=== PATIENT | male | born 1995 | race Caucasian/White ===

== ENCOUNTER 2023-10-03 08:52 | Outpatient (OUT) | payer OTHER, SELFPAY ==
--- NOTE | 2023-10-03 09:09 | XR_ITS ---
[address] [address] Patient Name: ARTURO GARLAND MRN: [id number] date: 1995 Sex: M Assigned Patient Location: [place] Current Patient Location: [place] Accession/Order Number: [id number] Exam Date: 10/03/2023 10:13 Report Date: 10/03/2023 11:03 At the request of: JOSE LUIS BURKS Procedure: XR IVP w KUB EXAMINATION: XR IVP w KUB HISTORY: Left Ureteral Stone N20.1 COMPARISON: No relevant comparison available. TECHNIQUE: After obtaining patient consent a stock layer image was obtained followed by injection of 100cc of Omnipaque 300 IV contrast. Immediate nephrographic images were obtained. Corticomedullary and urographic phase images were obtained at 5, 10, 15 and 20 minutes. 15 minute oblique images were also obtained. FINDINGS: KIDNEY/URETER - RIGHT: No visible calcifications. KIDNEY/URETER - LEFT: No visible calcifications. PELVIS: No visible ureteral calcifications. Any visible calcifications favor phleboliths. NEPHROGRAPHIC PHASE: Normal, symmetric size, contour, and orientation. Normal and symmetric time of contrast uptake. CORTICOMEDULLARY: No mass or abnormal appearing medulla, pyramids, or collecting system. UROGRAPHIC PHASE: Normal caliber, course, and number of ureters. BLADDER: Normal size and contour. BOWEL: No abnormal dilation or deviation. BONES: No acute abnormality. OTHER: Negative. No abnormal gaseous collections. XR/XR IVP w KUB IMPRESSION: Normal examination. Electronically authenticated by: GISSEL SPARROW Date: 10/03/2023 11:03
[2023-10-03 09:31] LABS: Estimated GFR (African America >60 (>=60); Estimated GFR (Non-African Ame >60 (>=60)
== END 2023-10-03 08:53 | disposition home or self-care (01) ==
PROVIDERS: PCP Family Medicine; Visit Provider Nurse Practitioner Family
DX: N20.1 Calculus of ureter (principal)
CPT/HCPCS: 36415; 74400; 82565; Q9967

== ENCOUNTER 2024-05-05 12:08 | Emergency (ER) | payer OTHER, SELFPAY ==
[2024-05-05 12:55] VITALS: BP 146/100; PULSE 91; TEMP 36.9; O2SAT 96; BMI 34.3
--- OUTSIDE RECORDS SUMMARY | 2024-05-05 12:58 | XMS_ITS | CCD ---
Author Organization [facility] Inform ion Partnership [facility] Care Team Providers Care Control Room Tender Name Role Phone Mark Vasquez DO Primary Care Provider [phone] MARK VASQUEZ Primary Care Unavailable MARK VASQUEZ Referring Unavailable MARK VASQUEZ Referring Unavailable MARK VASQUEZ Primary Care Unavailable MARK VASQUEZ Attending Unavailable MARK VASQUEZ Referring Unavailable MERRY ZAMORA Attending Unavailable DO Mark Vasquez Primary Care Provider DO Nathaniel Lackey Emergency Provider MARK VASQUEZ Primary Care Physician Nathaniel Lackey Admitting Unavailable Nathaniel Lackey Attending Unavailable Mark Vasquez Primary Care Unavailable Nathaniel Lackey Attending Unavailable Mark Vasquez Primary Care Unavailable Nathaniel Lackey Admitting Unavailable Delfino Chau Admitting Unavailable Delfino Chau Attending Unavailable Mark Vasquez Primary Care Unavailable Aleksandra Diaz Attending Unavailable Allergies Allergy Classification Reported Allergen(s) Allergy Type Date of Onset Reaction(s) Facility (1 source) No Known Medication Allergies; Translations: [No Known Medication Allergies] Propensity to adverse reactions (disorder) [facility] Repository Medications Current Medications Medication Drug Class(es) Dates Sig (Normalized) Sig (Original) Advair HFA 115 mcg-21 mcg/inh inhalation aerosol with adapter (1 source) Start: 09-23-2023 take 2 puff(s) by inhalation once daily Advair HFA 115 mcg-21 mcg/inh inhalation aerosol with adapter 2 puff(s), Inhalation, Daily, Refill(s) 6 Start Date: 09/23/23 Status: Ordered Albuterol (4 sources) beta2-Adrenergic Agonist Start: 09-23-2023 Albuterol (Eqv-ProAir HFA) 2 puff(s), Inhalation, Refill(s) 0 Start Date: 09/23/23 Status: Ordered Start: 04-01-2020 Albuterol Sulf ate Active 2 PUFF INHALATION every 6 to 8 hours April 01, 2020 1:00am take 2 puff(s) by in halation every six hours as needed for wheezing albuterol sulfate HFA (VENTOLIN HFA) 108 (90 Base) MCG/ACT inhaler Inhale 2 puffs into the lungs every 6 hours as needed for Wheezing 0 Active cephalexin 500 mg oral capsule (2 sources) Cephalosporin Antibacterial Start: 09-05-2023 take 500 mg by mouth twice daily Cephalexin Active 500 MG PO Twice daily 21 02September 05, 2023 12:00am FLUoxetine 40 mg oral capsule (1 source) Serotonin Reuptake Inhibitor take 1 capsule by mouth once daily FLUoxetine (PROZAC) 40 MG capsule Take 40 mg by mouth daily 0 Active 120 actuat fluticasone propionate 0.11 mg/actuat metered dose inhaler (1 source) Corticosteroid take 1 puff(s) by inhalation twice daily fluticasone (FLOVENT HFA) 110 MCG/ACT inhaler Inhale 1 puff into the lungs 2 times daily 0 Active ibuprofen 800 mg oral tablet (3 sources) Nonsteroidal Anti-inflammatory Drug Start: 09-23-2023 ibuprofen 800 mg Tab 800 mg = 1 tab(s), Oral, Refills(s) 0 Start Date: 09/23/23 Status: Ordered Start: 09-05-2023 take 800 mg by mouth three times daily Ibuprofen Active 800 MG PO Three times daily September 05, 2023 12:00am Loratadine / Pseudoephedrine (1 source) alpha-Adrenergic Agonist Loratadine-Pseudoeph edrine (CLARITIN-D 24 HOUR PO) Take by mouth 0 Active omeprazole 20 mg delayed release oral capsule (1 source) Proton Pump Inhibitor Star t: 09-03 take 1 capsule by mouth once daily omeprazole 20 mg Cap-DR 20 mg = 1 cap(s), Oral, Daily, Refills(s) 0 Start Date: 09/23/23 Status: Ordered ondansetron 4 mg disintegrating oral tablet (2 sources) Serotonin-3 Receptor Antagonist Star t: 07-22 take 4 mg by mouth every eight hours Ondansetron Active 4 MG PO Q8H September 05, 2023 12:00am pantoprazole 40 mg delayed release oral tablet (1 source) Proton Pump Inhibitor take 1 tablet by mouth once daily pantoprazole (PROTONIX) 40 MG tablet Take 40 mg by mouth daily 0 Active tamsulosin hydrochloride 0.4 mg oral capsule (4 sources) alpha-Adrenergic Billy Star t: 09-03 End: 10-04 take 1 capsule by mouth twice daily tamsulosin 0.4 mg Cap 0.4 mg = 1 cap(s), Oral, BID, X 30 day(s), # 60 cap(s), Refills(s) 0, Pharmacy: [facility] [id number], 178, cm, 09/23/23 8:42:00 EDT, Height/Length Dosing, 110.3, kg, 09/23/23 8:42:00 EDT, Weight Dosing Start Date: 09/23/23 Stop Date: 10/23/23 Status: Ordered Start: 09-23-2023 take 1 capsule by mo [facility] once daily tamsulosin 0.4 mg Cap 0.4 mg = 1 cap(s), Oral, Daily, Refills(s) 0 Start Date: 09/23/23 Status: Ordered Start: 09-05-2023 take 1 capsule by [facility] once daily Tamsulosin (Flomax) 0.4 mg capsule Active 0.4 MG PO Daily September 05, 2023 12:00am traMADol hydrochloride 50 mg oral tablet (1 source) Opioid Agonist Start: 09-23-2023 traMADOL 50 mg Tab 50 mg = 1 tab(s), Oral, Refills(s) 0 Start Date: 09/23/23 Status: Ordered Completed/Discontinued Medications Medication Drug Class(es) Dates Sig (Normalized) Sig (Original) montelukast 10 mg oral tablet (2 sources) Leukotriene Receptor Antagonist Start: 02-06-2017 End: 09-05-2023 take 1 tablet by mouth once daily at bedtime Montelukast (Singulair) 10 mg Tablet Discontinued 10 MG PO Daily at bedtime February 06, 2017 12:00am September 05, 2023 6:53pm Problems Problem Classification Problem Date Documented Da te Episodic/Chronic Abdominal pain (2 sources) Unspecified abdominal pain; Translations: [Lower abdominal pain, unspecified] Onset: 09-05-2023 Episodic Calculus of urinary tract (4 sources) Urolithiasis ; Translations: [Urinary calculus, unspecified] Onset: 09-22-2023 09-05-2023 Episodic Diseases of white blood cells (2 sources) Leukocytosis; Translations: [Elevated white blood cell count, unspecified] 09-05-2023 Chronic Genitourinary symptoms and ill-defined conditions (1 source) Frequency of micturition; Translations: [Frequency of micturition] Onset: 09-18-2023 Episodic Immunizations and screening for infectious disease (2 sources) Contact with or exposure to other viral diseases; Translations: [Close exposure to COVID-19 virus] 04-01-2020 Episodic Other injuries and conditions due to external causes (2 sources) Contusion; Translations: [Other injury of unspecified body region, initial encounter] 02-06-2017 Episodic Residual codes; unclassified (2 sources) Obstructive sleep apnea (adult) (pediatric); Translations: [Obstructive sleep apnea (adult) (pediatric)] Onset: 02-04-2022 Chronic Results Test Name Value Interpretation Reference Range [facility] Patient Letter [facility] January 15, 2024 ARTURO GARLAND [address] [place] [address] : 1995 Dear Mr. Arturo Garland, [facility], Dr. Neel Brown office has been trying to reach you concerning your most recent testing you completed. The office tried to contact you to see if your pain has resolved. If you are still having pain, please call so we can discuss the next steps for your care. Thank you for your cooperation in this matter, so we can continue to provide you with quality care. Sincerely, [facility] , option #3 [facility] Patient Letter FTon 2023 Patient Letter [facility] Patient Letter [facility] November 10, 2023 ARTURO GARLAND [address] [place] [address] : 1995 Dear Arturo Garland, We have been trying to reach you with no success. It is important that you return our call regarding your recent imaging upon receiving this letter. Also, at the time of your call, please provide us with your current information. Thank you for your prompt attention to this matter. Sincerely, [facility] [address] [address] [facility] Lab Reportson 10-10-2023 Lab Reports [id number]#1.00TIFF [facility] RAD - MISCon 10-10-2023 RAD - MISC [id number]#1.00TIFF [facility] ED Note-Physicianon 09-24-19 ED Note-Physician [id number]#1.00TIFF [facility] ED Note-Physician [id number]#1.00TIFF [facility] Formson 09-24-2023 Forms [id number]#1.00TIFF [facility] Lab Reportson 09-24-2023 Lab Reports [id number]#1.00TIFF [facility] RAD - CT Reporton 09-24-2023 RAD - [address] Report [id number]#1.00TIFF [facility] RAD - MISCon 09-24-2023 RAD - MISC [id number]#1.00TIFF [facility] Ambulatory Visit Summaryon 0 09-23-2023 Ambulatory Visit Summary ARTURO GARLAND :1995 Visit Date:09/23/2023 Ambulatory Visit Instructions Your Diagnosis Left ureteral stone Your Care Team Attending Physician - HAYLEY Diaz APRN, Aleksandra Parks Primary Care Physician - MARK VASQUEZ DO This Is Your Medications List Contact prescribing physician if questions or concerns albuterol (Albuterol (Eqv-ProAir HFA)) fluticasone-salmeterol (Advair HFA 115 mcg-21 mcg/inh inhalation aerosol with adapter) ibuprofen (ibuprofen 800 mg Tab) omeprazole (omeprazole 20 mg Cap-DR) tamsulosin (tamsulosin 0.4 mg Cap) tramadol (traMADOL 50 mg Tab) Discharge Vitals Temperature (Temporal Artery) 36.8 ?C Heart Rate (Peripheral) 87 Respiratory Rate 16 Blood Pressure 144/88 Height 70 in Height 178 cm Weight 242.66 lb Weight 110.3 kg BMI 34.81 Medications What How Much When Instructions Unchanged albuterol (Albuterol (Eqv-ProAir HFA)) 2 Puffs Inhalation Contact prescribing physician if questions or concerns Unchanged fluticasone-salmeterol (Advair HFA 115 mcg-21 mcg/ inh inhalation aerosol with adapter) 2 Puffs Inhalation Every day Contact prescribing physician if questions or concerns Unchanged ibuprofen (ibuprofen 800 mg Tab) 1 Tablets By Mouth Contact prescribing physician if questions or concerns Unchanged omeprazole (omeprazole 20 mg Cap-DR) 1 Capsules By Mouth Every day Contact prescribing physician if questions or concerns Unchanged tamsulosin (tamsulosin 0.4 mg Cap) 1 Capsules By Mouth Every day Contact prescribing physician if questions or concerns Unchanged tramadol (traMADOL 50 mg Tab) 1 Tablets By Mouth Contact prescribing physician if questions or concerns Allergies No Known Medication Allergies Problems Ongoing - Any problem that you are currently receiving treatment for. Left ureteral stone Patient Survey You may receive a survey via text or e-mail asking about your office visit. Please share your experience with us by completing your survey. We appreciate your feedback and thank you for choosing us for your care. [facility] Patient Educationon 09-23-19 Patient Education Nephrology Dietary Guidelines to Help Prevent Kidney Stones Kidney stones are deposits of minerals and salts that form inside your kidneys. Your risk of developing kidney stones may be greater depending on your diet, your lifestyle, the medicines you take, and whether you have certain medical conditions. Most people can lower their risks of developing kidney stones by following these dietary guidelines. Your dietitian may give you more specific instructions depending on your overall health and the type of kidney stones you tend to develop. What are tips for following this plan? Reading food labels ? Choose foods with no salt added or low-salt labels. Limit your salt (sodium) intake to less than 1,500 mg a day. ? Choose foods with calcium for each meal and snack. Try to eat about 300 mg of calcium at each meal. Foods that contain 200?500 mg of calcium a serving include: ? 8 oz (237 mL) of milk, oxgaqxd-itrbyjxnpisc-qfsvu milk, and calcium-fortifiedfruit juice. Calcium-fortified means that calcium has been added to these drinks. ? 8 oz (237 mL) of kefir, yogurt, and soy yogurt. ? 4 oz (114 g) of tofu. ? 1 oz (28 g) of cheese. ? 1 cup (150 g) of dried figs. ? 1 cup (91 g) of cooked broccoli. ? One 3 oz (85 g) can of sardines or mackerel. Most people need 1,000?1,500 mg of calcium a day. Talk to your dietitian about how much calcium is recommended for you. Shopping ? Buy plenty of fresh fruits and vegetables. Most people do not need to avoid fruits and vegetables, even if these foods contain nutrients that may contribute to kidney stones. ? When shopping for convenience foods, choose: ? Whole pieces of fruit. ? Pre-made salads with dressing on the side. ? Low-fat fruit and yogurt smoothies. ? Avoid buying frozen meals or prepared deli foods. These can be high in sodium. ? Look for foods with live cultures, such as yogurt and kefir. ? Choose high-fiber grains, such as whole-wheat breads, oat bran, and wheat cereals. Cooking ? Do not add salt to food when cooking. Place a salt shaker on the table and allow each person to add their own salt to taste. ? Use vegetable protein, such as beans, textured vegetable protein (TVP), or tofu, instead of meat in pasta, casseroles, and soups. Meal planning ? Eat less salt, if told by your dietitian. To do this: ? Avoid eating processed or pre-made food. ? Avoid eating fast food. ? Eat less animal protein, including cheese, meat, poultry, or fish, if told by your dietitian. To do this: ? Limit the number of times you have meat, poultry, fish, or cheese each week. Eat a diet free of meat at least 2 days a week. ? Eat only one serving each day of meat, poultry, fish, or seafood. ? When you prepare animal proteins, cut pieces into small portion sizes. For most meat and fish, one serving is about the size of the palm of your hand. ? Eat at least five servings of fresh fruits and vegetables each day. To do this: ? Keep fruits and vegetables on hand for snacks. ? Eat one piece of fruit or a handful of berries with breakfast. ? Have a salad and fruit at lunch. ? Have two kinds of vegetables at dinner. ? You may be told to limit foods that are high in a substance called oxalate. These include: ? Spinach (cooked), rhubarb, beets, sweet potatoes, and Swedish chard. ? Peanuts. ? Potato chips, moldovan fries, and baked potatoes with skin on. ? Nuts and nut products. ? Chocolate. ? If you regularly take a diuretic medicine, make sure to eat at least 1 or 2 servings of fruits or vegetables that are high in potassium each day. These include: ? Avocado. ? Banana. ? [place], prune, carrot, or tomato juice. ? Baked potato. ? Cabbage. ? Beans and split peas. Lifestyle ? Drink enough fluid to keep your urine pale yellow. This is the most important thing you can do. Spread your fluid intake throughout the day. ? If you drink alcohol: ? Limit how much you have to: ? 0?1 drink a day for women who are not . ? 0?2 drinks a day for men. ? Know how much alcohol is in your drink. In the [place] one drink equals one 12 oz bottle of beer (355 mL), one 5 oz glass of wine (148 mL), or one 1? oz glass of hard liquor (44 mL). ? Lose weight if told by your health care provider. Work with your dietitian to find an eating plan and weight loss strategies that work best for you. General information ? Talk to your health care provider and dietitian about taking daily supplements. Depending on your health and the cause of your kidney stones, you may be told: ? Do not take high-dose supplements of vitamin C (1,000 mg a day or more). ? To take a calcium supplement. ? To take a daily probiotic supplement. ? To take other supplements such as magnesium, fish oil, or vitamin B6. ? Take oyat-aez-zltutrx and prescription medicines only as told by your health care provider. These include supplements. What foods sh (more content not included)... Normal [facility] Provider Letteron 09-23-2023 Provider Letter (Inserted Image. Suzy ble to display) September 23, 2023 ARTURO GARLAND [address] [place] [address] : 1995 To Whom It May Concern, Please excuse above patient from work. Date of Illness: From: 09/23/23 To: 09/23/23 May Return to Work On: 09/24/2023 Restrictions: None Comments: Patient had an appointment 09/23/23 with Aleksandra Diaz CNP/[facility]. Sincerely, [facility] [address] [place], [place] [address] , option #3 Normal [facility] Urology Office/Clinic Noteon 09-23-2023 Urology Office/Clinic Note Chief Complaint Patient here today for [facility] ER f/u from 09/05/23 and 09/18/23 for kidney stone HPI Staff Pt is a new pt. Never before seen in our office (Verified on DA) Here today due to Kidney Stone. Pt went to [facility] ER 09/05/23 (they did want to admit pt due to WBC count, however pt refused) CC: left sided flank pain. CT *3mm obstructing proximal left ureteral stone with mild hydronephrosis. DC'd home w/Flomax, Keflex, Motrin & Zofran Pt then returned to [facility] ER 09/09/23 CC: flank pain KUB 09/09/23 *Similar position of Lt ureteral stone Tx'd for pain @ ER & then DC'd home. Again they tried to admit pt, but pt refused. Pt returned again to [facility] ER 09/18/23 CC: pain & increased urinary frequency CT 09/18/23 *Interval migration of 3mm Lt Ureteral Stone present in UVJ. Mild Lt hydro *BUN 14 Crea 0.80 eGFR>60 DC'd home with Tamsulosin. Patient denies any dysuria, or visible blood. Patient denies passing stone. History of Present Illness I have reviewed and verified the staff HPI to be accurate for this encounter. Portions of this record may have been created with voice recognition artificial intelligence software, specifically [employer], [employer] and or [employer]. Substitutions may have occurred due to the inherent limitations of voice recognition and artificial intelligence software. Review of Systems PHQ Score Initial Depression Screen Score: 0 SCORE Physical Exam Vitals & Measurements T: 36.8 ?C(Temporal Artery) HR: 87(Peripheral) RR: 16 BP: 144/88 HT: 70 in HT: 178 cm WT: 110.3 kg WT: 242.66 lb BMI: 34.81 General: Well developed, well nourished, in no acute distress. Genitourinary: Flank Pain: none. Bladder: nonpalpable. Assessment/Plan Review of external ER notes, labs, imaging. 1. Left ureteral stone (N20.1: Calculus of ureter) [facility] ER 09/05/2023 with left-sided flank pain radiating into the groin. BUN 15, creatinine 1.12, eGFR >60. CTAP without con 09/05/2023 with obstructing 3 mm proximal left ureteral stone with mild hydro Discharged with Keflex 500 mg twice daily x 10 days, tamsulosin 0.4 mg daily, ibuprofen and Zofran. [facility] ER 09/09/2023 recurrence of pain. He was medicated while in the ER and discharged home. BUN 14, creat 1.01, eGFR >60. KUB 09/09/2023 - 3 mm proximal left ureteral stone unchanged [facility] ER 09/18/2023 with difficulty urinating. BUN 14, creat 0.80, eGFR >60. Discharged with tamsulosin. CTAP without con 09/18/2023 showed interval migration of the 3 mm left ureteral calculus not present in the UVJ, minimal hydro. This is pt's first stone episode. No flank pain on exam today. We discussed imaging results. Given the size of the stone and clinical presentation today, patient has a very good chance of passing this on his own. He notes that he would like to avoid stone procedure if at all possible. He denies any urinary symptoms today. Denies any recent fever, hematuria, nausea/vomiting, flank pain. Patient did not get KUB/R US for today's appointment, given recent CT scan. Will send Rx for tamsulosin 0.4 mg twice daily until he notes stone passing. We discussed possible side effects, patient to call office if experiencing anything intolerable and stop medication. [place] [facility] [place]. Will schedule IVP to reassess status of stone at this time. Advised to greatly in increase fluid intake. ER for any fever, significant flank pain, nausea/vomiting, inability to urinate. Patient verbalizes understanding. -Schedule IVP. Call patient with results. Determine follow-up pending results of imaging. Ordered: tamsulosin, 0.4 mg = 1 cap(s), Oral, BID, X 30 day(s), # 60 cap(s), Refills(s) 0, Pharmacy: [facility] [id number], 178, cm, 09/23/23 8:42:00 EDT, Height/Length Dosing, 110.3, kg, 09/23/23 8:42:00 EDT, Weight Dosing Creatinine XR IVP Follow-up With When Contact Information HAYLEY Diaz APRN, Aleksandra X, FAM, URL Additional Instructions: pending IVP results Patient Education Dietary Guidelines to Help Prevent Kidney Stones Kidney Stones, [id number] Problem List/Past Medical History Ongoing Left ureteral stone Historical No qualifying data Medications Advair HFA 115 mcg-21 mcg/inh inhalation aerosol with adapter, 2 puff(s), Inhalation, Daily Albuterol (Eqv-ProAir HFA), 2 puff(s), Inhalation ibuprofen 800 mg Tab, 800 mg= 1 tab(s), Oral omeprazole 20 mg Cap-DR, 20 mg= 1 cap(s), Oral, Daily tamsulosin 0.4 mg Cap, 0.4 mg= 1 cap(s), Oral, Daily tamsulosin 0.4 mg Cap, 0.4 mg= 1 cap(s), Oral, BID traMADOL 50 mg Tab, 50 mg= 1 tab(s), Oral Allergies No Known Medication Allergies Social History Tobacco Never (less than 100 in lifetime) Tobacco Use:. Smokeless tobacco user within last 30 days Smokeless Tobacco Use:., 09/23/2023 Family History Asthma: Mother. Diabetes mellitus type 2: Father. Hypertension: Father. Immunizations Vaccine Date Status SARS-CoV-2 (COVID-19) Ad26 vaccine 10/04/2020 R (more content not included)... Normal [facility] Comment on above: Result Comment: Elec tronically Signed By: HAYLEY Diaz APRN, Aleksandra Parks\viviana\Date and Time Signed: 09/23/23 09:41 EDT Basic Metabolic Panelon 09-02 Anion gap [Moles/Vol] 11.2 mmol/L Normal 6.0-15.0 Th e [facility] Comment on above: Performed By: #### C BC, BMP ####[address] [address] [facility] Calcium [Mass/Vol] 8.8 mg/dL Normal 8.6-10.3 [facility] Comment on above: Performed By: #### C BC, BMP ####[address] [address] [facility] Chloride [Moles/Vol] 106 mmol/L Normal 98-107 [facility] Comment on above: Performed By: #### C BC, BMP ####[address] [address] [facility] CO2 [Moles/Vol] 24.7 mmol/L Normal 21.0-31.0 [facility] Comment on above: Performed By: #### C BC, BMP ####[address] [address] [facility] Creatinine [Mass/Vol] 0.80 mg/dL Normal 0.70-1.30 [facility] Comment on above: Performed By: #### C BC, BMP ####[address] [address] [facility] Creatinine Clr Calc Pharmacy 171.88 Normal [facility] Comment on above: Result Comment: PERF ORMED BY: [facility] [address] [place] [id number] PATHOLOGIST LAYOUT ARTIST YOVANNY ARTIS M.D. Performed By: #### C BC, BMP ####[place] [address] [place] [id number] [facility] GFR/1.73 sq M.predicted MDRD (S/P/Bld) [Vol rate/Area] mL/min/{1.73_m2} Normal [facility] Comment on above: Performed By: #### C BC, BMP ####[place] [id number] [facility] Glucose [Mass/Vol] 87 mg/dL Normal 70-100 [facility] Comment on above: Result Comment: [facility] Glucose Reference Range is dependent on time and content of last meal. Glucose of more than 200 mg/dL in a nonstressed, ambulatory subject supports the diagnosis of Diabetes Mellitus. ADA recommended reference range Performed By: #### C BC, BMP ####[place] [id number] [facility] Potassium [Moles/Vol] 3.9 mmol/L Normal 3.5-5.1 [facility] Comment on above: Performed By: #### C BC, BMP ####[place] [id number] [facility] Sodium [Moles/Vol] 138 mmol/L Normal 136-145 The [facility] Comment on above: Performed By: #### C BC, BMP ####[place] [id number] [facility] Urea nitrogen [Mass/Vol] 14 mg/dL Normal 7-25 [facility] Comment on above: Performed By: #### C BC, BMP ####[place] [id number] [facility] CT abdomen pelvis wo [facility] 0 09-18-2023 CT abdomen pelvis wo [facility] [place] [id number] Scan Report Signed Patient: Arturo Garland MR#: [id number] : 1995 Acct:[id number] Age/Sex: 28 / M ADM Date: 09/18/23 Loc: ER Room: Type: [facility] ER Attending Dr: Copies to: Delfino Chau DO Ordering Provider: Delfino Chau DO Date of Service: 09/18/23 CT/CT abdomen pelvis wo con: kidney stone CT Abdomen and Pelvis withoutcontrast TECHNIQUE: Axial imaging with 2-D reconstruction. . The CT exam was performed using one or more the following dose reduction techniques: Automated exposure control, adjustment of the MA and/or Kv according to patient size, or use of the iterative reconstruction technique. COMPARISON: 09/05/2023 History: History of obstructing 3 mm proximal left ureteral stone. Inability to urinate normally. LIMITATIONS: None LOWER THORAX Unremarkable LIVER: Hepatic steatosis. GALLBLADDER: No gallbladder abnormality identified. BILE DUCTS: No dilatation SPLEEN: Unremarkable PANCREAS: Unremarkable ADRENAL GLANDS: Unremarkable KIDNEYS:There is interval migration of the 3 mm left ureteral calculus now present in the ureteral vesicle junction. Minimal hydronephrosis. Unremarkable right kidney. AORTA: No abdominal aortic aneurysm identified. RETROPERITONEUM: No significant retroperitoneal abnormalities identified. MESENTERY:Unremarkable SMALL BOWEL: The small bowel loops are nondistended. APPENDIX: The appendix is normal. COLON: Unremarkable URINARY BLADDER: Urinary bladder is unremarkable. REPRODUCTIVE SYSTEM: Reproductive structures are unremarkable. PNEUMOPERITONEUM: None PERITONEAL FLUID:None BONY STRUCTURES: Unremarkable ABDOMINAL WALL: Unremarkable CT/CT abdomen pelvis wo con IMPRESSION: Interval migration of the 3 mm left ureteral stone now present in the ureterovesical junction. Mild left hydronephrosis. Impression dictated by: Kwabena Ojeda M.D.09/18/2023 9:14 AM Dictation Location: [place] [address] Transcribed By: [facility] 09/18/23 0914 Dictated By: Kwabena Ojeda DO 09/18/23 0910 Signed By: 09/18/23 0914 Normal [facility] Complete Blood Count Auto Di ffon 09-18-2023 Basophils (Bld) [#/Vol] 0.1 10*3/uL Normal 0.0-0.2 [facility] Comment on above: Result Comment: PERF ORMED BY: [address] [place] [address] PATHOLOGIST LAYOUT ARTIST YOVANNY ARTIS M.D. Performed By: #### C BC, BMP ####[place] [id number] [facility] Basophils/100 WBC (Bld) 0.8 % Normal . [facility] Comment on above: Performed By: #### C BC, BMP ####[place] [id number] [facility] Eosinophils (Bld) [#/Vol] 0.2 10*3/uL Normal 0.0-0.45 [facility] Comment on above: Performed By: #### C BC, BMP ####[place] [id number] [facility] Eosinophils/100 WBC (Bld) 2.8 % Normal . [facility] Comment on above: Performed By: #### C BC, BMP ####[address] Erythrocyte distribution width (RBC) [Ratio] 14.0 % Normal 12.0-14.8 [facility] Comment on above: Performed By: #### C BC, BMP ####[address] Hematocrit (Bld) [Volume fraction] 42.4 % Normal 38.8-50.0 [facility] Comment on above: Performed By: #### C BC, BMP ####[place] [id number] [facility] Hemoglobin (Bld) [Mass/Vol] 14.5 g/dL Normal 13.0-17.0 [facility] Comment on above: Performed By: #### C BC, BMP ####[place] [id number] [facility] Lymphocytes (Bld) [#/Vol] 2.1 10*3/uL Normal 1.00-4.8 [facility] Comment on above: Performed By: #### C BC, BMP ####[place] [id number] [facility] Lymphocytes/100 WBC (Bld) 28.2 % Normal . [facility] Comment on above: Performed By: #### C BC, BMP ####[address] MCH (RBC) [Entitic mass] 29.2 pg Normal 27.5-35.2 [facility] Comment on above: Performed By: #### C BC, BMP ####[address] MCV (RBC) [Entitic vol] 85.8 fL Normal 83.5-101 [facility] Comment on above: Performed By: #### C BC, BMP ####[address] Mean Corpuscular HGB Conc 34.1 g/dL Normal 32.5-35.6 [facility] Comment on above: Performed By: #### C BC, BMP ####[address] Monocytes (Bld) [#/Vol] 0.7 10*3/uL Normal 0.0-0.8 [facility] Comment on above: Performed By: #### C BC, BMP ####[address] Monocytes/100 WBC (Bld) 17.86 % Normal 0.00-20.00 [facility] Comment on above: Performed By: #### C BC, BMP ####[address] Monocytes/100 WBC (Bld) 9.2 % Normal . [facility] Comment on above: Performed By: #### C BC, BMP ####[address] Neutrophils (Bld) [#/Vol] 4.4 10*3/uL Normal 1.8-7.7 [facility] Comment on above: Performed By: #### C BC, BMP ####[place] [id number] [facility] Neutrophils/100 WBC (Bld) 59.0 % Normal . [facility] Comment on above: Performed By: #### C BC, BMP ####[address] [address] [facility] NRBC% 0.1 /100{WBC} Normal 0-0.5 [facility] Comment on above: Performed By: #### C BC, BMP ####[address] [address] [facility] Platelet mean volume (Bld) [Entitic vol] 10.2 fL High 6.6-10.1 [facility] Comment on above: Performed By: #### C YOMI, BMP ####[address] [address] [facility] Platelets (Bld) [#/Vol] 218 10*3/uL Normal 150-450 [facility] Comment on above: Performed By: #### C YOMI, BMP ####[address] [address] [facility] RBC (Bld) [#/Vol] 4.94 10*6/uL Normal 3.90-5.60 [facility] Comment on above: Performed By: #### C YOMI, BMP ####[place] [id number] [facility] WBC (Bld) [#/Vol] 7.5 10*3/uL Normal 4.1-10.5 [facility] Comment on above: Performed By: #### C YOMI, BMP ####[address] [address] [facility] Dipstick and Microscopicon 0 09-18-2023 Appearance (U) Clear Normal Clear [facility] Comment on above: Order Comment: Name Collection Type:: Clean-Voided Midstream Performed By: #### A DDONUAPLUS ####[place] [id number] [facility] Bacteria,Urine None Seen Normal None Seen [facility] Comment on above: Order Comment: Name Collection Type:: Clean-Voided Midstream Performed By: #### A DDONUAPLUS ####[place] [id number] [facility] Bilirubin,Urine Negative Normal Negative [facility] Comment on above: Order Comment: Name Collection Type:: Clean-Voided Midstream Performed By: #### A DDONUAPLUS ####[address] [address] [facility] Color (U) Yellow Normal Yellow [facility] Comment on above: Order Comment: Name Collection Type:: Clean-Voided Midstream Performed By: #### A DDONUAPLUS ####[address] [address] [facility] Glucose Ql (U) Normal Normal Normal [facility] Comment on above: Order Comment: Name Collection Type:: Clean-Voided Midstream Performed By: #### A DDONUAPLUS ####[address] [address] [place] Hyaline Casts,Urine 0-8 Normal 0-8 [facility] Comment on above: Order Comment: Name Collection Type:: Clean-Voided Midstream Result Comment: PERF ORMED BY: [facility] [address] [place] [id number] PATHOLOGIST LAYOUT ARTIST YOVANNY ARTIS M.D. Performed By: #### A DDONUAPLUS ####[address] [address] [facility] Ketones Ql (U) Negative Normal Negative [facility] Comment on above: Order Comment: Name Collection Type:: Clean-Voided Midstream Performed By: #### A DDONUAPLUS ####[address] [address] [facility] Leukocyte esterase Test strip Ql (U) Negative Normal Negative [facility] Comment on above: Order Comment: Name Collection Type:: Clean-Voided Midstream Performed By: #### A DDONUAPLUS ####[address] [address] [place] Nitrite,Urine Negative Normal Negative [facility] Comment on above: Order Comment: Name Collection Type:: Clean-Voided Midstream Performed By: #### A DDONUAPLUS ####[address] [address] [facility] Occult Blood,Urine Trace High Negative [facility] Comment on above: Order Comment: Name Collection Type:: Clean-Voided Midstream Result Comment: PERF ORMED BY: [facility] [address] [place] [address] PATHOLOGIST LAYOUT ARTIST YOVANNY ARTIS M.D. Performed By: #### A DDONUAPLUS ####[place] [id number] [facility] pH (U) 7.0 [pH] Normal 5.0-9.0 [facility] Comment on above: Order Comment: Name Collection Type:: Clean-Voided Midstream Performed By: #### A DDONUAPLUS ####[address] Protein,Urine Negative Normal Negative [facility] Comment on above: Order Comment: Name Collection Type:: Clean-Voided Midstream Performed By: #### A DDONUAPLUS ####[address] RBC,Urine 5-9 High 0-4 [facility] Comment on above: Order Comment: Name Collection Type:: Clean-Voided Midstream Performed By: #### A DDONUAPLUS ####[address] Specificy [place],Urine 1.021 Normal 1.001-1.030 [facility] Comment on above: Order Comment: Name Collection Type:: Clean-Voided Midstream Performed By: #### A DDONUAPLUS ####[address] Squamous Epithelial Cell,Urine 0-1 Normal 0-2 [facility] Comment on above: Order Comment: Name Collection Type:: Clean-Voided Midstream Performed By: #### A DDONUAPLUS ####[address] Urobilinogen,Urine Normal Normal Normal [facility] Comment on above: Order Comment: Name Collection Type:: Clean-Voided Midstream Performed By: #### A DDONUAPLUS ####[address] [place] [address] [facility] WBC,Urine 1-2 Normal 0-4 [facility] Comment on above: Order Comment: Name Collection Type:: Clean-Voided Midstream Performed By: #### A DDONUAPLUS ####[facility] [address] [place] [address] [facility] Provider Letteron 09-15-2023 Provider Letter (Inserted Image. Suzy ble to display) September 15, 2023 ARTURO GARLAND [address] [place] [address] : 1995 Dear Arturo Garland , We have been trying to reach you with no success. It is important that you return our call regarding your upcoming appointment on 09/23/23 upon receiving this letter. Also, at the time of your call, please provide us with your current information. Thank you for your prompt attention to this matter. Sincerely, [facility] [address] [place] [address] Normal [facility] Alanine aminotransferase [En zymatic activity/volume] in Serum or PlasmaOrdered By: Nathaniel Lackey on 09-09-2023 ALT [Catalytic activity/Vol] 25 U/L 7-52 [facility] Albumin [Mass/volume] in Ser um or Plasma by Bromocresol green (BCG) dye binding methoOrdered By: Nathaniel Lackey on 09-09-2023 Albumin BCG dye [Mass/Vol] 4.8 g/dL 3.5-5.7 [facility] Alkaline phosphatase [Enzyma tic activity/volume] in Serum or PlasmaOrdered By: Nathaniel Lackey on 09-09-2023 ALP [Catalytic activity/Vol] 78 U/L 34-104 [facility] Aspartate aminotransferase [ Enzymatic activity/volume] in Serum or PlasmaOrdered By: Nathaniel Lackey on 09-09-2023 AST [Catalytic activity/Vol] 23 U/L 13-39 [facility] Automated erythrocytes count in urine sediment (number/area)Ordered By: Nathaniel Lackey on 09-09-2023 RBC Auto (Urine sed) [#/Area] 50-100 [HPF] 0-4 [facility] Automated leukocytes count i n urine sediment (number/area)Ordered By: Nathaniel Lackey on 09-09-2023 WBC Auto (Urine sed) [#/Area] 0-1 [HPF] 0-4 [facility] Basic Metabolic Panelon Anion gap [Moles/Vol] 13.1 mmol/L Normal 6.0-15.0 Th e [facility] Comment on above: Performed By: #### B MP, CBC, HEPATIC, LIPASE ####[address] Calcium [Mass/Vol] 9.6 mg/dL Normal 8.6-10.3 [facility] Comment on above: Performed By: #### B MP, CBC, HEPATIC, LIPASE ####[address] Chloride [Moles/Vol] 104 mmol/L Normal 98-107 [facility] Comment on above: Performed By: #### B MP, CBC, HEPATIC, LIPASE ####[address] CO2 [Moles/Vol] 28.1 mmol/L Normal 21.0-31.0 [facility] Comment on above: Performed By: #### B MP, CBC, HEPATIC, LIPASE ####[address] Creatinine [Mass/Vol] 1.01 mg/dL Normal 0.70-1.30 [facility] Comment on above: Performed By: #### B MP, CBC, HEPATIC, LIPASE ####[address] Creatinine Clr Calc Pharmacy 133.93 Normal [facility] Comment on above: Performed By: #### B MP, CBC, HEPATIC, LIPASE ####[address] GFR/1.73 sq M.predicted MDRD (S/P/Bld) [Vol rate/Area] mL/min/{1.73_m2} Normal [facility] Comment on above: Performed By: #### B MP, CBC, HEPATIC, LIPASE ####[address] [place] [address] [place] Glucose [Mass/Vol] 86 mg/dL Normal 70-100 [facility] Comment on above: Result Comment: [place] Glucose Reference Range is dependent on time and content of last meal. Glucose of more than 200 mg/dL in a nonstressed, ambulatory subject supports the diagnosis of Diabetes Mellitus. ADA recommended reference range Performed By: #### B MP, CBC, HEPATIC, LIPASE ####[address] Potassium [Moles/Vol] 4.2 mmol/L Normal 3.5-5.1 [facility] Comment on above: Performed By: #### B MP, CBC, HEPATIC, LIPASE ####[address] Sodium [Moles/Vol] 141 mmol/L Normal 136-145 [facility] Comment on above: Performed By: #### B MP, CBC, HEPATIC, LIPASE ####[address] Urea nitrogen [Mass/Vol] 14 mg/dL Normal 7-25 [facility] Comment on above: Performed By: #### B MP, CBC, HEPATIC, LIPASE ####[address] Basophils Auto (Bld) [#/Vol] Ordered By: Nathaniel Lackey on 09-09-2023 Basophils (Bld) [#/Vol] 0.1 10*3/uL 0.0-0.2 [facility] Basophils/100 WBC Auto (Bld) Ordered By: Nathaniel Lackey on 09-09-2023 Basophils/100 WBC (Bld) 0.6 % . [facility] Bilirubin Test strip Ql (U)O rdered By: Nathaniel Lackey on 09-09-2023 Bilirubin Ql (U) Negative Negative [facility] Bilirubin.direct [Mass/volum e] in Serum or PlasmaOrdered By: Nathaniel Lackey on 09-09-2023 Bilirubin.direct [Mass/Vol] 0.20 mg/dL 0.03-0.18 [facility] Bilirubin.total [Mass/volume ] in Serum or PlasmaOrdered By: Nathaniel Lackey on 09-09-2023 Bilirubin [Mass/Vol] 0.6 mg/dL 0.3-1.0 [facility] Calcium [Mass/volume] in Ser um or PlasmaOrdered By: Nathaniel Lackey on 09-09-2023 Calcium [Mass/Vol] 9.6 mg/dL 8.6-10.3 [facility] Carbon dioxide, total [Moles /volume] in Serum or PlasmaOrdered By: Nathaniel Lackey on 09-09-2023 CO2 [Moles/Vol] 28.1 mmol/L 21.0-31.0 [facility] Chloride [Moles/volume] in S jane or PlasmaOrdered By: Nathaniel Lackey on 09-09-2023 Chloride [Moles/Vol] 104 mmol/L 98-107 [facility] Color Auto (U)Ordered By: Tomas Lackey on 09-09-2023 Color (U) Yellow Yellow [facility] Complete Blood Count Auto Di ffon 09-09-2023 Basophils (Bld) [#/Vol] 0.1 10*3/uL Normal 0.0-0.2 [facility] Comment on above: Result Comment: PERF ORMED BY: [facility] [address] [place] [address] PATHOLOGIST LAYOUT ARTIST YOVANNY ARTIS M.D. Performed By: #### B MP, CBC, HEPATIC, LIPASE ####[address] Basophils/100 WBC (Bld) 0.6 % Normal . [facility] Comment on above: Performed By: #### B MP, CBC, HEPATIC, LIPASE ####[place] [address] [place] [id number] [place] Eosinophils (Bld) [#/Vol] 0.3 10*3/uL Normal 0.0-0.45 [facility] Comment on above: Performed By: #### B MP, CBC, HEPATIC, LIPASE ####[place] [id number] [place] Eosinophils/100 WBC (Bld) 2.1 % Normal . [facility] Comment on above: Performed By: #### B MP, CBC, HEPATIC, LIPASE ####[address] Erythrocyte distribution width (RBC) [Ratio] 14.0 % Normal 12.0-14.8 [facility] Comment on above: Performed By: #### B MP, CBC, HEPATIC, LIPASE ####[address] Hematocrit (Bld) [Volume fraction] 49.7 % Normal 38.8-50.0 [facility] Comment on above: Performed By: #### B MP, CBC, HEPATIC, LIPASE ####[address] Hemoglobin (Bld) [Mass/Vol] 16.8 g/dL Normal 13.0-17.0 [facility] Comment on above: Performed By: #### B MP, CBC, HEPATIC, LIPASE ####[address] Lymphocytes (Bld) [#/Vol] 2.8 10*3/uL Normal 1.00-4.8 [facility] Comment on above: Performed By: #### B MP, CBC, HEPATIC, LIPASE ####[address] Lymphocytes/100 WBC (Bld) 20.8 % Normal . [facility] Comment on above: Performed By: #### B MP, CBC, HEPATIC, LIPASE ####[address] MCH (RBC) [Entitic mass] 29.1 pg Normal 27.5-35.2 [facility] Comment on above: Performed By: #### B MP, CBC, HEPATIC, LIPASE ####[address] MCV (RBC) [Entitic vol] 85.9 fL Normal 83.5-101 [facility] Comment on above: Performed By: #### B MP, CBC, HEPATIC, LIPASE ####[place] [address] Mean Corpuscular HGB Conc 33.9 g/dL Normal 32.5-35.6 [facility] Comment on above: Performed By: #### B MP, CBC, HEPATIC, LIPASE ####[address] Monocytes (Bld) [#/Vol] 1.0 10*3/uL High 0.0-0.8 [facility] Comment on above: Performed By: #### B MP, CBC, HEPATIC, LIPASE ####[address] Monocytes/100 WBC (Bld) 17.13 % Normal 0.00-20.00 [facility] Comment on above: Performed By: #### B MP, CBC, HEPATIC, LIPASE ####[address] Monocytes/100 WBC (Bld) 7.4 % Normal . [facility] Comment on above: Performed By: #### B MP, CBC, HEPATIC, LIPASE ####[address] Neutrophils (Bld) [#/Vol] 9.2 10*3/uL High 1.8-7.7 [facility] Comment on above: Performed By: #### B MP, CBC, HEPATIC, LIPASE ####[address] Neutrophils/100 WBC (Bld) 69.1 % Normal . [facility] Comment on above: Performed By: #### B MP, CBC, HEPATIC, LIPASE ####[address] NRBC% 0.2 /100{WBC} Normal 0-0.5 [facility] Comment on above: Performed By: #### B MP, CBC, HEPATIC, LIPASE ####[address] Platelet mean volume (Bld) [Entitic vol] 10.0 fL Normal 6.6-10.1 [facility] Comment on above: Performed By: #### B MP, CBC, HEPATIC, LIPASE ####[place] [address] [address] Platelets (Bld) [#/Vol] 256 10*3/uL Normal 150-450 [facility] Comment on above: Performed By: #### B MP, CBC, HEPATIC, LIPASE ####[address] RBC (Bld) [#/Vol] 5.78 10*6/uL High 3.90-5.60 [facility] Comment on above: Performed By: #### B MP, CBC, HEPATIC, LIPASE ####[address] WBC (Bld) [#/Vol] 13.3 10*3/uL High 4.1-10.5 [facility] Comment on above: Performed By: #### B MP, CBC, HEPATIC, LIPASE ####[address] Creatinine [Mass/volume] in Serum or PlasmaOrdered By: Nathaniel Lackey on 09-09-2023 Creatinine [Mass/Vol] 1.01 mg/dL 0.70-1.30 [facility] Dipstick and Microscopicon 0 09-09-2023 Appearance (U) Clear Normal Clear [facility] Comment on above: Order Comment: Name Collection Type:: Clean-Voided Midstream Performed By: #### A DDONUAPLUS #### [address] Bacteria,Urine None Seen Normal None Seen [facility] Comment on above: Order Comment: Name Collection Type:: Clean-Voided Midstream Performed By: #### A DDONUAPLUS #### [address] Bilirubin,Urine Negative Normal Negative [facility] Comment on above: Order Comment: Name Collection Type:: Clean-Voided Midstream Performed By: #### A DDONUAPLUS #### [address] Color (U) Yellow Normal Yellow [facility] Comment on above: Order Comment: Name Collection Type:: Clean-Voided Midstream Performed By: #### A DDONUAPLUS #### [address] Glucose Ql (U) Normal Normal Normal [facility] Comment on above: Order Comment: Name Collection Type:: Clean-Voided Midstream Performed By: #### A DDONUAPLUS #### [address] Hyaline Casts,Urine 0-8 Normal 0-8 [facility] Comment on above: Order Comment: Name Collection Type:: Clean-Voided Midstream Result Comment: PERF ORMED BY: [place] [address] PATHOLOGIST LAYOUT ARTIST YOVANNY ARTIS M.D. Performed By: #### A DDONUAPLUS #### [address] Ketones Ql (U) Trace High Negative [facility] Comment on above: Order Comment: Name Collection Type:: Clean-Voided Midstream Performed By: #### A DDONUAPLUS #### [address] Leukocyte esterase Test strip Ql (U) Negative Normal Negative [facility] Comment on above: Order Comment: Name Collection Type:: Clean-Voided Midstream Performed By: #### A DDONUAPLUS #### [place] [address] [place] Nitrite,Urine Negative Normal Negative [facility] Comment on above: Order Comment: Name Collection Type:: Clean-Voided Midstream Performed By: #### A DDONUAPLUS #### [place] [address] [place] Occult Blood,Urine 3+ High Negative [facility] Comment on above: Order Comment: Name Collection Type:: Clean-Voided Midstream Result Comment: PERF ORMED BY: [place] [address] PATHOLOGIST LAYOUT ARTIST YOVANNY ARTIS M.D. Performed By: #### A DDONUAPLUS #### [address] pH (U) 6.0 [pH] Normal 5.0-9.0 [facility] Comment on above: Order Comment: Name Collection Type:: Clean-Voided Midstream Performed By: #### A DDONUAPLUS #### [address] Protein,Urine Negative Normal Negative [facility] Comment on above: Order Comment: Name Collection Type:: Clean-Voided Midstream Performed By: #### A DDONUAPLUS #### [address] RBC,Urine 50-100 High 0-4 [facility] Comment on above: Order Comment: Name Collection Type:: Clean-Voided Midstream Performed By: #### A DDONUAPLUS #### [address] Specificy [place],Urine 1.016 Normal 1.001-1.030 [facility] Comment on above: Order Comment: Name Collection Type:: Clean-Voided Midstream Performed By: #### A DDONUAPLUS #### [address] Squamous Epithelial Cell,Urine None Seen Normal 0-2 [facility] Comment on above: Order Comment: Name Collection Type:: Clean-Voided Midstream Performed By: #### A DDONUAPLUS #### [address] Urobilinogen,Urine Normal Normal Normal [facility] Comment on above: Order Comment: Name Collection Type:: Clean-Voided Midstream Performed By: #### A DDONUAPLUS #### [address] WBC LM.HPF (Urine sed) [#/Area] 0 /[HPF] Normal 0-4 [facility] Comment on above: Order Comment: Name Collection Type:: Clean-Voided Midstream Performed By: #### A DDONUAPLUS #### [place] [id number] [facility] ED Note-Physicianon 09-09-19 ED Note-Physician [id number] Normal [facility] Eosinophils Auto (Bld) [#/Vo l]Ordered By: Nathaniel Lackey on 09-09-2023 Eosinophils (Bld) [#/Vol] 0.3 10*3/uL 0.0-0.45 [facility] Eosinophils/100 WBC Auto (Bl d)Ordered By: Nathaniel Lackey on 09-09-2023 Eosinophils/100 WBC (Bld) 2.1 % . [facility] Erythrocyte distribution wid th Auto (RBC) [Ratio]Ordered By: Nathaniel Lackey on 09-09-2023 Erythrocyte distribution width (RBC) [Ratio] 14.0 % 12.0-14.8 [facility] Globulin Calc (S) [Mass/Vol] Ordered By: Nathaniel Lackey on 09-09-2023 Globulin (S) [Mass/Vol] 3.1 g/dL [facility] Glucose [Mass/volume] in Ser um or PlasmaOrdered By: Nathaniel Lackey on 09-09-2023 Glucose [Mass/Vol] 86 mg/dL 70-100 [facility] Comment on above: ADA recommended refe rence rangeRandom Glucose Reference Range is dependent on time and content of last meal. Glucose of more than 200 mg/dL in a nonstressed, ambulatory subject supports the diagnosis of Diabetes Mellitus. Hematocrit Auto (Bld) [Volum e fraction]Ordered By: Nathaniel Lackey on 09-09-2023 Hematocrit (Bld) [Volume fraction] 49.7 % 38.8-50.0 [facility] Hemoglobin [Mass/volume] in BloodOrdered By: Nathaniel Lackey on 09-09-2023 Hemoglobin (Bld) [Mass/Vol] 16.8 g/dL 13.0-17.0 [facility] Hepatic Panelon 09-09-2023 Albumin [Mass/Vol] 4.8 g/dL Normal 3.5-5.7 [facility] Comment on above: Performed By: #### B MP, CBC, HEPATIC, LIPASE ####[address] Albumin/Globulin [Mass ratio] 1.5 {ratio} Normal [facility] Comment on above: Performed By: #### B MP, CBC, HEPATIC, LIPASE ####[place] [id number] [facility] ALP [Catalytic activity/Vol] 78 U/L Normal 34-104 [facility] Comment on above: Performed By: #### B MP, CBC, HEPATIC, LIPASE ####[address] ALT [Catalytic activity/Vol] 25 U/L Normal 7-52 [facility] Comment on above: Performed By: #### B MP, CBC, HEPATIC, LIPASE ####[address] AST [Catalytic activity/Vol] 23 U/L Normal 13-39 [facility] Comment on above: Performed By: #### B MP, CBC, HEPATIC, LIPASE ####[place] [id number] [facility] Bilirubin [Mass/Vol] 0.6 mg/dL Normal 0.3-1.0 [facility] Comment on above: Performed By: #### B MP, CBC, HEPATIC, LIPASE ####[address] Bilirubin,Indirect 0.4 mg/dL Normal [facility] Comment on above: Performed By: #### B MP, CBC, HEPATIC, LIPASE ####[address] Bilirubin.indirect [Mass/Vol] 0.20 mg/dL High 0.03-0.18 [facility] Comment on above: Performed By: #### B MP, CBC, HEPATIC, LIPASE ####[address] Globulin (S) [Mass/Vol] 3.1 g/dL Normal [facility] Comment on above: Performed By: #### B MP, CBC, HEPATIC, LIPASE ####[facility] [id number] [place] [address] [facility] Protein [Mass/Vol] 7.9 g/dL Normal 6.4-8.9 [facility] Comment on above: Performed By: #### B MP, CBC, HEPATIC, LIPASE ####[facility] [id number] [place] [address] [facility] Ketones Auto test strip (U) [Mass/Vol]Ordered By: Nathaniel Lackey on 09-09-2023 Ketones (U) [Mass/Vol] Trace Negative [facility] Lab Reportson 09-09-2023 Lab Reports [id number] Normal [facility] Laboratory - UrinalysisOrder ed By: Nathaniel Lackey on 09-09-2023 Hyaline casts LM Ql (Urine sed) 0-8 [LPF] 0-8 [facility] Leukocytes [#/volume] correc mohit for nucleated erythrocytes in Blood by Automated counOrdered By: Nathaniel Lackey on 09-09-2023 WBC corrected for nucl RBC Auto (Bld) [#/Vol] 13.3 10*3/uL 4.1-10.5 [facility] Lipaseon 09-09-2023 Lipase [Catalytic activity/Vol] 11.0 U/L Normal 11.0-82.0 [facility] Comment on above: Result Comment: PERF ORMED BY: [facility] [address] [place] [address] PATHOLOGIST LAYOUT ARTIST YOVANNY ARTIS M.D. Performed By: #### B MP, CBC, HEPATIC, LIPASE ####[place] [address] [place] [address] [facility] Lipase [Enzymatic activity/v olume] in Serum or PlasmaOrdered By: Nathaniel Lackey on 09-09-2023 Lipase [Catalytic activity/Vol] 11.0 U/L 11.0-82.0 [facility] Lymphocytes Auto (Bld) [#/Vo l]Ordered By: Nathaniel Lackey on 09-09-2023 Lymphocytes (Bld) [#/Vol] 2.8 10*3/uL 1.00-4.8 [facility] Lymphocytes/100 WBC Auto (Bl d)Ordered By: Nathaniel Lackey on 09-09-2023 Lymphocytes/100 WBC (Bld) 20.8 % . [facility] MCH Auto (RBC) [Entitic mass ]Ordered By: Nathaniel Lackey on 09-09-2023 MCH (RBC) [Entitic mass] 29.1 pg 27.5-35.2 [facility] MCHC Auto (RBC) [Mass/Vol]Or dered By: Nathaniel Lackey on 09-09-2023 MCHC (RBC) [Mass/Vol] 33.9 g/dL 32.5-35.6 [facility] MCV Auto (RBC) [Entitic vol] Ordered By: Nathaniel Lackey on 09-09-2023 MCV (RBC) [Entitic vol] 85.9 fL 83.5-101 [facility] Monocyte distribution width [Entitic volume] in Blood by AutomatedOrdered By: Nathaniel Lackey on 09-09-2023 Monocyte distribution width Auto (Bld) [Entitic vol] 17.13 % 0.00-20.00 [facility] Monocytes Auto (Bld) [#/Vol] Ordered By: Nathaniel Lackey on 09-09-2023 Monocytes (Bld) [#/Vol] 1.0 10*3/uL 0.0-0.8 [facility] Monocytes/100 WBC Auto (Bld) Ordered By: Nathaniel Lackey on 09-09-2023 Monocytes/100 WBC (Bld) 7.4 % . [facility] Neutrophils Auto (Bld) [#/Vo l]Ordered By: Nathaniel Lackey on 09-09-2023 Neutrophils (Bld) [#/Vol] 9.2 10*3/uL 1.8-7.7 [facility] Neutrophils/100 WBC Auto (Bl d)Ordered By: Nathaniel Lackey on 09-09-2023 Neutrophils/100 WBC (Bld) 69.1 % . [facility] Nitrite Test strip Ql (U)Ord ered By: Nathaniel Lackey on 09-09-2023 Nitrite Ql (U) Negative Negative [facility] No Panel InformationOrdered By: Nathaniel Lackey on 09-09-2023 Estimated GFR (CKD-EPI) > 60.0 mL/Min [facility] Creatinine Clearance (Chem 133.93 [facility] Nucleated erythrocytes [Pres ence] in Blood by Automated countOrdered By: Nathaniel Lackey on 09-09-2023 Nucleated RBC Auto Ql (Bld) 0.2 /100{WBC} 0-0.5 [facility] Platelet mean volume Auto (B ld) [Entitic vol]Ordered By: Nathaniel Lackey on 09-09-2023 Platelet mean volume (Bld) [Entitic vol] 10.0 fL 6.6-10.1 [facility] Platelets Auto (Bld) [#/Vol] Ordered By: Nathaniel Lackey on 09-09-2023 Platelets (Bld) [#/Vol] 256 10*3/uL 150-450 [facility] Potassium [Moles/volume] in Serum or PlasmaOrdered By: Nathaniel Lackey on 09-09-2023 Potassium [Moles/Vol] 4.2 mmol/L 3.5-5.1 [facility] Protein Auto test strip (U) [Mass/Vol]Ordered By: Nathaniel Lackey on 09-09-2023 Protein (U) [Mass/Vol] Negative Negative [facility] Protein [Mass/volume] in Ser um or PlasmaOrdered By: Nathaniel Lackey on 09-09-2023 Protein [Mass/Vol] 7.9 g/dL 6.4-8.9 [facility] RAD - CT Reporton 09-09-2023 RAD - CT Report [id number] Normal [facility] RBC Auto (Bld) [#/Vol]Ordere d By: Nathaniel Lackey on 09-09-2023 RBC (Bld) [#/Vol] 5.78 10*6/uL 3.90-5.60 [facility] Serum or plasma albumin/glob ulin mass ratioOrdered By: Nathaniel Lackey on 09-09-2023 Albumin/Globulin [Mass ratio] 1.5 {ratio} [facility] Serum or plasma anion gap de terminationOrdered By: Nathaniel Lackey on 09-09-2023 Anion gap [Moles/Vol] 13.1 mmol[facility]L [facility] or plasma non-glucuron idated bilirubin measurement (mass/volume)Ordered By: Nathaniel Lackey on 09-09-2023 Bilirubin.indirect [Mass/Vol] 0.4 mg/dL [facility] Sodium [Moles/volume] in Ser um or PlasmaOrdered By: Nathaniel Lackey on 09-09-2023 Sodium [Moles/Vol] 141 mmol/L 136-145 [facility] Specific gravity Auto test s trip (U) [Rel density]Ordered By: Nathaniel Lackey on 09-09-2023 Specific gravity (U) [Rel density] 1.016 1.001-1.030 [facility] Squamous epithelial cells de tection in urine sediment by light microscopyOrdered By: Nathaniel Lackey on 09-09-2023 Epithelial cells.squamous LM Ql (Urine sed) None seen [HPF] 0-2 [facility] Urea nitrogen [Mass/volume] in Serum or PlasmaOrdered By: Nathaniel Lackey on 09-09-2023 Urea nitrogen [Mass/Vol] 14 mg/dL 7-25 [facility] Urine bacteria detection by automated methodOrdered By: Nathaniel Lackey on 09-09-2023 Bacteria Auto Ql (U) None seen [HPF] None Seen [facility] Urine clarity by refractomet ry automatedOrdered By: Nathaniel Lackey on 09-09-2023 Clarity Refractometry automated (U) Clear Clear [facility] Urine glucose measurement by automated test strip (mass/volume)Ordered By: Nathaniel Lackey on 09-09-2023 Glucose Auto test strip (U) [Mass/Vol] Normal mg/dL Normal [facility] Urine hemoglobin detection b y automated test stripOrdered By: Nathaniel Lackey on 09-09-2023 Hemoglobin Auto test strip Ql (U) 3+ Negative [facility] Urine leukocyte esterase det ection by automated test stripOrdered By: Nathaniel Lackey on 09-09-2023 Leukocyte esterase Auto test strip Ql (U) Negative Negative [facility] Urobilinogen Auto test strip (U) [Mass/Vol]Ordered By: Nathaniel Lackey on 09-09-2023 Urobilinogen (U) [Mass/Vol] Normal mg/dL Normal [facility] WBC Auto (Bld) [#/Vol]Ordere d By: Nathaniel Lackey on 09-09-2023 WBC (Bld) [#/Vol] 13.3 10*3/uL 4.1-10.5 [facility] XR KUBon 09-09-2023 XR KUB [facility] [place] [address] XRay Report Signed Patient: Arturo Garland MR#: [id number] [id number] : 1995 Acct:[id number] Age/Sex: 28 / M ADM Date: 09/09/23 Loc: ER Room: Type: [facility] ER Attending Dr: Copies to: Nathaniel Lackey DO Ordering Provider: Nathaniel Lackey DO Date of Service: 09/09/23 XR/XR KUB: Abdominal Pain Single view of abdomen COMPARISON: CT abdomen 09/05/23 HISTORY: Left-sided abdominal pain. History of stone THORAX: Lung bases unremarkable. FREE AIR: Supine position limits assessment BOWEL: No gaseous intestinal distention. STOOL: No significant stool RENAL STONES: 3 mm proximal LEFT ureteral stone unchanged. VASCULAR CALCIFICATIONS: Unremarkable SOFT TISSUE: Unremarkable BONES: Unremarkable POSTSURGICAL CHANGES: None XR/XR KUB IMPRESSION: Similar position of 3 mm proximal LEFT ureteral stone. Impression dictated by: Kwabena Ojeda M.D.09/09/2023 1:29 PM Dictation Location: [place] [address] Transcribed By: [facility] 09/09/23 1329 Dictated By: Kwabena Ojeda DO 09/09/23 1328 Signed By: 09/09/23 1329 Normal [facility] pH Auto test strip (U)Ordere d By: Nathaniel Lackey on 09-09-2023 pH (U) 6.0 [pH] 5.0-9.0 [facility] Activated partial thrombopla stin time (aPTT) in platelet poor plasma by coagulation aOrdered By: Nathaniel Lackey on 09-05-2023 aPTT Coag (PPP) [Time] 32.6 s 25.1-36.5 [facility] Comment on above: A hematocrit value g reater than 55% may lead to inaccurate results in coagulation testing. Patients having hematocrit values >55% require a special collection tube for coagulation studies. Please contact the laboratory at [phone] for redraw instructions. Alanine aminotransferase [En zymatic activity/volume] in Serum or PlasmaOrdered By: Nathaniel Lackey on 09-05-2023 ALT [Catalytic activity/Vol] 25 U/L 7-52 [facility] Albumin [Mass/volume] in Ser um or Plasma by Bromocresol green (BCG) dye binding methoOrdered By: Nathaniel Lackey on 09-05-2023 Albumin BCG dye [Mass/Vol] 4.7 g/dL 3.5-5.7 [facility] Alkaline phosphatase [Enzyma tic activity/volume] in Serum or PlasmaOrdered By: Nathaniel Lackey on 09-05-2023 ALP [Catalytic activity/Vol] 77 U/L 34-104 [facility] Amorphous urine sedimentOrde red By: Nathaniel Lackey on 09-05-2023 Amorphous sediment LM Ql (Urine sed) 1+ [LPF] [facility] Aspartate aminotransferase [ Enzymatic activity/volume] in Serum or PlasmaOrdered By: Nathaniel Lackey on 09-05-2023 AST [Catalytic activity/Vol] 21 U/L 13-39 [facility] Automated erythrocytes count in urine sediment (number/area)Ordered By: Nathaniel Lackey on 09-05-2023 RBC Auto (Urine sed) [#/Area] Innumerable [HPF] 0-4 [facility] Automated leukocytes count i n urine sediment (number/area)Ordered By: Nathaniel Lackey on 09-05-2023 WBC Auto (Urine sed) [#/Area] 1-2 [HPF] 0-4 [facility] Automated urine sediment em cium oxalate crystal count by microscopy (number/high powOrdered By: Nathaniel Lackey on 09-05-2023 Calcium oxalate crystals LM.HPF (Urine sed) [#/Area] 1+ [HPF] [facility] Basic Metabolic Panelon Anion gap [Moles/Vol] 13.4 mmol/L Normal 6.0-15.0 [facility] e [facility] Comment on above: Performed By: #### H EPATIC, BMP, LIPASE, CBC ####[place] [address] Calcium [Mass/Vol] 9.7 mg/dL Normal 8.6-10.3 [facility] Comment on above: Performed By: #### H EPATIC, BMP, LIPASE, CBC ####[place] [id number] [facility] Chloride [Moles/Vol] 103 mmol/L Normal 98-107 [facility] Comment on above: Performed By: #### H EPATIC, BMP, LIPASE, CBC ####[address] CO2 [Moles/Vol] 27.5 mmol/L Normal 21.0-31.0 [facility] Comment on above: Performed By: #### H EPATIC, BMP, LIPASE, CBC ####[address] Creatinine [Mass/Vol] 1.12 mg/dL Normal 0.70-1.30 [facility] Comment on above: Performed By: #### H EPATIC, BMP, LIPASE, CBC ####[place] [address] [place] Creatinine Clr Calc Pharmacy 121.24 Normal [facility] Comment on above: Performed By: #### H EPATIC, BMP, LIPASE, CBC ####[address] GFR/1.73 sq M.predicted MDRD (S/P/Bld) [Vol rate/Area] mL/min/{1.73_m2} Normal [facility] Comment on above: Performed By: #### H EPATIC, BMP, LIPASE, CBC ####[address] Glucose [Mass/Vol] 107 mg/dL High 70-100 [facility] Comment on above: Result Comment: [place] Glucose Reference Range is dependent on time and content of last meal. Glucose of more than 200 mg/dL in a nonstressed, ambulatory subject supports the diagnosis of Diabetes Mellitus. ADA recommended reference range Performed By: #### H EPATIC, BMP, LIPASE, CBC ####[facility] S[address] Potassium [Moles/Vol] 3.9 mmol/L Normal 3.5-5.1 [facility] Comment on above: Performed By: #### H EPATIC, BMP, LIPASE, CBC ####[facility] Sodium [Moles/Vol] 140 mmol/L Normal 136-145 [facility] Comment on above: Performed By: #### H EPATIC, BMP, LIPASE, CBC ####[facility] Urea nitrogen [Mass/Vol] 15 mg/dL Normal 7-25 [facility] Comment on above: Performed By: #### H EPATIC, BMP, LIPASE, CBC ####[place] [address] Basophils Auto (Bld) [#/Vol] Ordered By: Nathaniel Lackey on 09-05-2023 Basophils (Bld) [#/Vol] 0.1 10*3/uL 0.0-0.2 [facility] Basophils/100 WBC Auto (Bld) Ordered By: Nathaniel Lackey on 09-05-2023 Basophils/100 WBC (Bld) 0.4 % . [facility] Bilirubin Test strip Ql (U)O rdered By: Nathaniel Lackey on 09-05-2023 Bilirubin Ql (U) Negative Negative [facility] Bilirubin.direct [Mass/volum e] in Serum or PlasmaOrdered By: Ntahaniel Lackey on 09-05-2023 Bilirubin.direct [Mass/Vol] 0.10 mg/dL 0.03-0.18 [facility] Bilirubin.total [Mass/volume ] in Serum or PlasmaOrdered By: Nathaniel Lackey on 09-05-2023 Bilirubin [Mass/Vol] 0.6 mg/dL 0.3-1.0 [facility] Blood Cultureon 09-05-2023 Bacteria identified Cx Nom (Bld) NO GROWTH 5 DAYS PERFORMED BY: [facility] [address] [place] [id number] PATHOLOGIST LAYOUT ARTIST YOVANNY ARTIS M.D. Normal [facility] Comment on above: Performed By: #### C UBLD, LACTIC #### [facility] [address] [place] [address] Bacteria identified Cx Nom (Bld) NO GROWTH 5 DAYS PERFORMED BY: [place] [address] PATHOLOGIST LAYOUT ARTIST YOVANNY ARTIS M.D. Normal [facility] Comment on above: Performed By: #### C UBLD, LACTIC #### [address] abdomen pelvis wo conon 0 09-05-2023 CT abdomen pelvis wo con [facility] [address] [place] [address] [place] [address] CT Scan Report Signed Patient: Arturo Garland MR#: [id number] [id number] : 1995 Acct:[id number] Age/Sex: 28 / M ADM Date: 09/05/23 Loc: ER Room: Type: [facility] ER Attending Dr: Copies to: Nathaniel Lackey DO Ordering Provider: Nathaniel Lackey DO Date of Service: 09/05/23 CT/CT abdomen pelvis wo con: f CT Abdomen and Pelvis withoutcontrast TECHNIQUE: Axial imaging with 2-D reconstruction. . The CT exam was performed using one or more the following dose reduction techniques: Automated exposure control, adjustment of the MA and/or Kv according to patient size, or use of the iterative reconstruction technique. COMPARISON: None History: LEFT flank pain. LIMITATIONS: None LOWER THORAX Unremarkable LIVER: Unremarkable GALLBLADDER: No gallbladder abnormality identified. BILE DUCTS: No dilatation SPLEEN: Unremarkable PANCREAS: Unremarkable ADRENAL GLANDS: Unremarkable KIDNEYS:Obstructing 3 mm proximal LEFT ureteral stone with mild hydronephrosis. AORTA: No abdominal aortic aneurysm identified. RETROPERITONEUM: No significant retroperitoneal abnormalities identified. MESENTERY:Unremarkable SMALL BOWEL: The small bowel loops are nondistended. APPENDIX: The appendix is normal. COLON: Unremarkable URINARY BLADDER: Urinary bladder is unremarkable. REPRODUCTIVE SYSTEM: Reproductive structures are unremarkable. PNEUMOPERITONEUM: None PERITONEAL FLUID:None BONY STRUCTURES: Unremarkable ABDOMINAL WALL: Unremarkable CT/CT abdomen pelvis wo con IMPRESSION: Obstructing 3 mm proximal LEFT ureteral stone with mild hydronephrosis. Impression dictated by: Kwabena Ojeda M.D.09/05/2023 7:56 PM Dictation Location: [place] [address] Transcribed By: [facility] 09/05/231955 Dictated By: Kwabena Ojeda DO 09/05/231952 Signed By: 09/05/231955 Normal [facility] Calcium [Mass/volume] in Ser um or PlasmaOrdered By: Nathaniel Lackey on 09-05-2023 Calcium [Mass/Vol] 9.7 mg/dL 8.6-10.3 [facility] Carbon dioxide, total [Moles /volume] in Serum or PlasmaOrdered By: Nathaniel Lackey on 09-05-2023 CO2 [Moles/Vol] 27.5 mmol/L 21.0-31.0 [facility] Chloride [Moles/volume] in S jane or PlasmaOrdered By: Nathaniel Lackey on 09-05-2023 Chloride [Moles/Vol] 103 mmol/L 98-107 [facility] Color Auto (U)Ordered By: Tomas Lackey on 09-05-2023 Color (U) [place] Yellow [facility] Complete Blood Count Auto Di ffon 09-05-2023 Basophils (Bld) [#/Vol] 0.1 10*3/uL Normal 0.0-0.2 [facility] Comment on above: Result Comment: PERF ORMED BY: [facility] [address] [place] [id number] PATHOLOGIST LAYOUT ARTIST YOVANNY ARTIS M.D. Performed By: #### H EPATIC, BMP, LIPASE, CBC ####[place] [address] [place] [address] [place] Basophils/100 WBC (Bld) 0.4 % Normal . [facility] Comment on above: Performed By: #### H EPATIC, BMP, LIPASE, CBC ####[facility] [place] [id number] [facility] Eosinophils (Bld) [#/Vol] 0.2 10*3/uL Normal 0.0-0.45 [facility] Comment on above: Performed By: #### H EPATIC, BMP, LIPASE, CBC ####[address] Eosinophils/100 WBC (Bld) 1.2 % Normal . [facility] Comment on above: Performed By: #### H EPATIC, BMP, LIPASE, CBC ####[address] Erythrocyte distribution width (RBC) [Ratio] 13.9 % Normal 12.0-14.8 [facility] Comment on above: Performed By: #### H EPATIC, BMP, LIPASE, CBC ####[address] Hematocrit (Bld) [Volume fraction] 48.7 % Normal 38.8-50.0 [facility] Comment on above: Performed By: #### H EPATIC, BMP, LIPASE, CBC ####[address] Hemoglobin (Bld) [Mass/Vol] 16.4 g/dL Normal 13.0-17.0 [facility] Comment on above: Performed By: #### H EPATIC, BMP, LIPASE, CBC ####[address] Lymphocytes (Bld) [#/Vol] 2.4 10*3/uL Normal 1.00-4.8 [facility] Comment on above: Performed By: #### H EPATIC, BMP, LIPASE, CBC ####[address] Lymphocytes/100 WBC (Bld) 14.3 % Normal . [facility] Comment on above: Performed By: #### H EPATIC, BMP, LIPASE, CBC ####[address] [address] MCH (RBC) [Entitic mass] 29.0 pg Normal 27.5-35.2 [facility] Comment on above: Performed By: #### H EPATIC, BMP, LIPASE, CBC ####[address] MCV (RBC) [Entitic vol] 86.3 fL Normal 83.5-101 [facility] Comment on above: Performed By: #### H EPATIC, BMP, LIPASE, CBC ####[address] Mean Corpuscular HGB Conc 33.6 g/dL Normal 32.5-35.6 [facility] Comment on above: Performed By: #### H EPATIC, BMP, LIPASE, CBC ####[address] Monocytes (Bld) [#/Vol] 1.0 10*3/uL High 0.0-0.8 [facility] Comment on above: Performed By: #### H EPATIC, BMP, LIPASE, CBC ####[address] Monocytes/100 WBC (Bld) 17.60 % Normal 0.00-20.00 [facility] Comment on above: Performed By: #### H EPATIC, BMP, LIPASE, CBC ####[address] Monocytes/100 WBC (Bld) 5.6 % Normal . [facility] Comment on above: Performed By: #### H EPATIC, BMP, LIPASE, CBC ####[address] Neutrophils (Bld) [#/Vol] 13.4 10*3/uL High 1.8-7.7 [facility] Comment on above: Performed By: #### H EPATIC, BMP, LIPASE, CBC ####[address] Neutrophils/100 WBC (Bld) 78.5 % Normal . [facility] Comment on above: Performed By: #### H EPATIC, BMP, LIPASE, CBC ####[address] NRBC% 0.1 /100{WBC} Normal 0-0.5 [facility] Comment on above: Performed By: #### H EPATIC, BMP, LIPASE, CBC ####[address] Platelet mean volume (Bld) [Entitic vol] 10.2 fL High 6.6-10.1 [facility] Comment on above: Performed By: #### H EPATIC, BMP, LIPASE, CBC ####[address] Platelets (Bld) [#/Vol] 243 10*3/uL Normal 150-450 [facility] Comment on above: Performed By: #### H EPATIC, BMP, LIPASE, CBC ####[address] RBC (Bld) [#/Vol] 5.64 10*6/uL High 3.90-5.60 [facility] Comment on above: Performed By: #### H EPATIC, BMP, LIPASE, CBC ####[address] WBC (Bld) [#/Vol] 17.1 10*3/uL High 4.1-10.5 [facility] Comment on above: Performed By: #### H EPATIC, BMP, LIPASE, CBC ####[address] Creatinine [Mass/volume] in Serum or PlasmaOrdered By: Nathaniel Lackey on 09-05-2023 Creatinine [Mass/Vol] 1.12 mg/dL 0.70-1.30 [facility] Dipstick and Microscopicon 0 09-05-2023 Amorphous Sediment,Urine 1+ Normal [facility] Comment on above: Order Comment: Name Collection Type:: Clean-Voided Midstream Performed By: #### A DDONUAPLUS #### [address] Appearance (U) Turbid Critically abnormal Clear [facility] Comment on above: Order Comment: Name Collection Type:: Clean-Voided Midstream Performed By: #### A DDONUAPLUS #### [facility] [address] [place] [address] [place] Bacteria,Urine Rare High None Seen [facility] Comment on above: Order Comment: Name Collection Type:: Clean-Voided Midstream Performed By: #### A DDONUAPLUS #### [place] [address] [place] Bilirubin,Urine Negative Normal Negative [facility] Comment on above: Order Comment: Name Collection Type:: Clean-Voided Midstream Performed By: #### A DDONUAPLUS #### [address] Calcium Oxalate Crystals,Urine 1+ Normal [facility] Comment on above: Order Comment: Name Collection Type:: Clean-Voided Midstream Performed By: #### A DDONUAPLUS #### [place] [address] [place] Color (U) [place] Critically abnormal Yellow [facility] Comment on above: Order Comment: Name Collection Type:: Clean-Voided Midstream Performed By: #### A DDONUAPLUS #### [place] [address] [place] Glucose Ql (U) Normal Normal Normal [facility] Comment on above: Order Comment: Name Collection Type:: Clean-Voided Midstream Performed By: #### A DDONUAPLUS #### [place] [address] [place] Hyaline Casts,Urine 9-19 High 0-8 [facility] Comment on above: Order Comment: Name Collection Type:: Clean-Voided Midstream Performed By: #### A DDONUAPLUS #### [place] [address] [place] Ketones Ql (U) Trace High Negative [facility] Comment on above: Order Comment: Name Collection Type:: Clean-Voided Midstream Performed By: #### A DDONUAPLUS #### [place] [address] [place] Leukocyte esterase Test strip Ql (U) 1+ High Negative [facility] Comment on above: Order Comment: Name Collection Type:: Clean-Voided Midstream Performed By: #### A DDONUAPLUS #### [place] [address] [place] Nitrite,Urine Negative Normal Negative [facility] Comment on above: Order Comment: Name Collection Type:: Clean-Voided Midstream Performed By: #### A DDONUAPLUS #### [address] Occult Blood,Urine 3+ High Negative [facility] Comment on above: Order Comment: Name Collection Type:: Clean-Voided Midstream Result Comment: PERF ORMED BY: [place] [address] PATHOLOGIST LAYOUT ARTIST YOVANNY ARTIS M.D. Performed By: #### A DDONUAPLUS #### [address] pH (U) 6.0 [pH] Normal 5.0-9.0 [facility] Comment on above: Order Comment: Name Collection Type:: Clean-Voided Midstream Performed By: #### A DDONUAPLUS #### [place] [address] [place] Protein (U) [Mass/Vol] 30 mg/dL High Negative Th e [facility] Comment on above: Order Comment: Name Collection Type:: Clean-Voided Midstream Performed By: #### A DDONUAPLUS #### [place] [address] [place] RBC,Urine Innumerable High 0-4 [facility] Comment on above: Order Comment: Name Collection Type:: Clean-Voided Midstream Performed By: #### A DDONUAPLUS #### [place] [address] [place] Specificy [place],Urine 1.023 Normal 1.001-1.030 [facility] Comment on above: Order Comment: Name Collection Type:: Clean-Voided Midstream Performed By: #### A DDONUAPLUS #### [place] [address] [place] Squamous Epithelial Cell,Urine 0-1 Normal 0-2 [facility] Comment on above: Order Comment: Name Collection Type:: Clean-Voided Midstream Performed By: #### A DDONUAPLUS #### [address] Urobilinogen,Urine >=2 High Normal [facility] Comment on above: Order Comment: Name Collection Type:: Clean-Voided Midstream Performed By: #### A DDONUAPLUS #### [address] WBC,Urine 1-2 Normal 0-4 [facility] Comment on above: Order Comment: Name Collection Type:: Clean-Voided Midstream Performed By: #### A DDONUAPLUS #### [address] Yeast,Urine None Seen Normal None Seen [facility] Comment on above: Order Comment: Name Collection Type:: Clean-Voided Midstream Result Comment: PERF ORMED BY: [place] [address] PATHOLOGIST LAYOUT ARTIST YOVANNY ARTIS M.D. Performed By: #### A DDONUAPLUS #### [address] Eosinophils Auto (Bld) [#/Vo l]Ordered By: Nathaniel Lackey on 09-05-2023 Eosinophils (Bld) [#/Vol] 0.2 10*3/uL 0.0-0.45 [facility] Eosinophils/100 WBC Auto (Bl d)Ordered By: Nathaniel Lackey on 09-05-2023 Eosinophils/100 WBC (Bld) 1.2 % . [facility] Erythrocyte distribution wid th Auto (RBC) [Ratio]Ordered By: Nathaniel Lackey on 09-05-2023 Erythrocyte distribution width (RBC) [Ratio] 13.9 % 12.0-14.8 [facility] Globulin Calc (S) [Mass/Vol] Ordered By: Nathaniel Lackey on 09-05-2023 Globulin (S) [Mass/Vol] 3.1 g/dL [facility] Glucose [Mass/volume] in Ser um or PlasmaOrdered By: Nathaniel Lackey on 09-05-2023 Glucose [Mass/Vol] 107 mg/dL 70-100 [facility] Comment on above: ADA recommended refe rence rangeRandom Glucose Reference Range is dependent on time and content of last meal. Glucose of more than 200 mg/dL in a nonstressed, ambulatory subject supports the diagnosis of Diabetes Mellitus. Hematocrit Auto (Bld) [Volum e fraction]Ordered By: Nathaniel Lackey on 09-05-2023 Hematocrit (Bld) [Volume fraction] 48.7 % 38.8-50.0 [facility] Hemoglobin [Mass/volume] in BloodOrdered By: Nathaniel Lackey on 09-05-2023 Hemoglobin (Bld) [Mass/Vol] 16.4 g/dL 13.0-17.0 [facility] Hepatic Panelon 09-05-2023 Albumin [Mass/Vol] 4.7 g/dL Normal 3.5-5.7 [facility] Comment on above: Performed By: #### H EPATIC, BMP, LIPASE, CBC ####[address] Albumin/Globulin [Mass ratio] 1.5 {ratio} Normal [facility] Comment on above: Performed By: #### H EPATIC, BMP, LIPASE, CBC ####[address] ALP [Catalytic activity/Vol] 77 U/L Normal 34-104 [facility] Comment on above: Performed By: #### H EPATIC, BMP, LIPASE, CBC ####[address] ALT [Catalytic activity/Vol] 25 U/L Normal 7-52 [facility] Comment on above: Performed By: #### H EPATIC, BMP, LIPASE, CBC ####[address] AST [Catalytic activity/Vol] 21 U/L Normal 13-39 [facility] Comment on above: Performed By: #### H EPATIC, BMP, LIPASE, CBC ####[address] [address] [place] Bilirubin [Mass/Vol] 0.6 mg/dL Normal 0.3-1.0 [facility] Comment on above: Performed By: #### H EPATIC, BMP, LIPASE, CBC ####[address] Bilirubin,Indirect 0.5 mg/dL Normal [facility] Comment on above: Performed By: #### H EPATIC, BMP, LIPASE, CBC ####[address] Bilirubin.indirect [Mass/Vol] 0.10 mg/dL Normal 0.03-0.18 [facility] Comment on above: Performed By: #### H EPATIC, BMP, LIPASE, CBC ####[address] Globulin (S) [Mass/Vol] 3.1 g/dL Normal [facility] Comment on above: Performed By: #### H EPATIC, BMP, LIPASE, CBC ####[address] Protein [Mass/Vol] 7.8 g/dL Normal 6.4-8.9 [facility] Comment on above: Performed By: #### H EPATIC, BMP, LIPASE, CBC ####[address] INR in Platelet poor plasma by Coagulation assayOrdered By: Nathaniel Lackey on 09-05-2023 INR Coag (PPP) [Relative time] 1.0 {INR} [facility] Comment on above: INR Therapeutic Rang e A) Pre- and Peroperative OAT started two weeks before surgery. NOT HIP SURGERY: 1.5 - 2.5 HIP SURGERY: 2 - 3B) Primary and secondary prevention of venous THROMBOSIS: 2 - 3C) Active venous thrombosis, pulmonary embolismand prevention of recurrent venous thrombosis: 2 - 3D) Prevention of arterial thromboembolismincluding patients with mechanical heart valves: 3 - 4.5 Ketones Auto test strip (U) [Mass/Vol]Ordered By: Nathaniel Lackey on 09-05-2023 Ketones (U) [Mass/Vol] Trace Negative [facility] - UrinalysisOrder ed By: Nahtaniel Lackey on 09-05-2023 Hyaline casts LM Ql (Urine sed) 9-19 [LPF] 0-8 [facility] Lactate [Moles/volume] in Se rum or PlasmaOrdered By: Nathaniel Lackey on 09-05-2023 Lactate [Moles/Vol] 0.9 mmol/L 0.5-2.2 [facility] Lactic Acidon 09-05-2023 Lactate [Moles/Vol] 0.9 mmol/L Normal 0.5-2.2 [facility] Comment on above: Result Comment: PERF ORMED BY: [facility] [address] [place] [address] PATHOLOGIST LAYOUT ARTIST YOVANNY ARTIS M.D. Performed By: #### C UBLD, LACTIC #### [facility] [address] [place] [address] [facility] Leukocytes [#/volume] correc mohit for nucleated erythrocytes in Blood by Automated counOrdered By: Nathaniel Lackey on 09-05-2023 WBC corrected for nucl RBC Auto (Bld) [#/Vol] 17.1 10*3/uL 4.1-10.5 [facility] Lipaseon 09-05-2023 Lipase [Catalytic activity/Vol] 14.0 U/L Normal 11.0-82.0 [facility] Comment on above: Result Comment: PERF ORMED BY: [facility] [address] [place] [address] PATHOLOGIST LAYOUT ARTIST YOVANNY ARTIS M.D. Performed By: #### H EPATIC, BMP, LIPASE, CBC ####[facility] [address] [place] [id number] [place] Lipase [Enzymatic activity/v olume] in Serum or PlasmaOrdered By: Nathaniel Lackey on 09-05-2023 Lipase [Catalytic activity/Vol] 14.0 U/L 11.0-82.0 [facility] Lymphocytes Auto (Bld) [#/Vo l]Ordered By: Nathaniel Lackey on 09-05-2023 Lymphocytes (Bld) [#/Vol] 2.4 10*3/uL 1.00-4.8 [facility] Lymphocytes/100 WBC Auto (Bl d)Ordered By: Nathaniel Lackey on 09-05-2023 Lymphocytes/100 WBC (Bld) 14.3 % . [facility] MCH Auto (RBC) [Entitic mass ]Ordered By: Nathaniel Lackey on 09-05-2023 MCH (RBC) [Entitic mass] 29.0 pg 27.5-35.2 [facility] MCHC Auto (RBC) [Mass/Vol]Or dered By: Nathaniel Lackey on 09-05-2023 MCHC (RBC) [Mass/Vol] 33.6 g/dL 32.5-35.6 [facility] MCV Auto (RBC) [Entitic vol] Ordered By: Nathaniel Lackey on 09-05-2023 MCV (RBC) [Entitic vol] 86.3 fL 83.5-101 [facility] Monocyte distribution width [Entitic volume] in Blood by AutomatedOrdered By: Nathaniel Lackey on 09-05-2023 Monocyte distribution width Auto (Bld) [Entitic vol] 17.60 % 0.00-20.00 [facility] Monocytes Auto (Bld) [#/Vol] Ordered By: Nathaniel Lackey on 09-05-2023 Monocytes (Bld) [#/Vol] 1.0 10*3/uL 0.0-0.8 [facility] Monocytes/100 WBC Auto (Bld) Ordered By: Nathaniel Lackey on 09-05-2023 Monocytes/100 WBC (Bld) 5.6 % . [facility] Neutrophils Auto (Bld) [#/Vo l]Ordered By: Nathaniel Lackey on 09-05-2023 Neutrophils (Bld) [#/Vol] 13.4 10*3/uL 1.8-7.7 [facility] Neutrophils/100 WBC Auto (Bl d)Ordered By: Nathaniel Lackey on 09-05-2023 Neutrophils/100 WBC (Bld) 78.5 % . [facility] Nitrite Test strip Ql (U)Ord ered By: Nathaniel Lackey on 09-05-2023 Nitrite Ql (U) Negative Negative [facility] No Panel InformationOrdered By: Nathaniel Lackey on 2024 Estimated GFR (CKD-EPI) > 60.0 mL/Min [facility] Creatinine Clearance (Chem 121.24 [facility] Nucleated erythrocytes [Pres ence] in Blood by Automated countOrdered By: Nathaniel Lackey on 09-05-2023 Nucleated RBC Auto Ql (Bld) 0.1 /100{WBC} 0-0.5 [facility] Partial Thromboplastin Timeo n 09-05-2023 aPTT Coag (Bld) [Time] 32.6 s Normal 25.1-36.5 Th e [facility] Comment on above: Result Comment: A he matocrit value greater than 55% may lead to inaccurate results in coagulation testing. Patients having hematocrit values >55% require a special collection tube for coagulation studies. Please contact the laboratory at [phone] for redraw instructions. PERFORMED BY: [place] [address] PATHOLOGIST LAYOUT ARTIST YOVANNY ARTIS M.D. Performed By: #### P T, PTT #### [address] Platelet mean volume Auto (B ld) [Entitic vol]Ordered By: Nathaniel Lackey on 09-05-2023 Platelet mean volume (Bld) [Entitic vol] 10.2 fL 6.6-10.1 [facility] Platelets Auto (Bld) [#/Vol] Ordered By: Nathaniel Lackey on 09-05-2023 Platelets (Bld) [#/Vol] 243 10*3/uL 150-450 [facility] Potassium [Moles/volume] in Serum or PlasmaOrdered By: Nathaniel Lackey on 09-05-2023 Potassium [Moles/Vol] 3.9 mmol/L 3.5-5.1 [facility] Protein Auto test strip (U) [Mass/Vol]Ordered By: Nathaniel Lackey on 09-05-2023 Protein (U) [Mass/Vol] 30 mg/dL Negative [facility] Protein [Mass/volume] in Ser um or PlasmaOrdered By: Nathaniel Lackey on 09-05-2023 Protein [Mass/Vol] 7.8 g/dL 6.4-8.9 [facility] Prothrombin Time INRon 09-04 INR Coag (PPP) [Relative time] 1.0 {INR} Normal [facility] Comment on above: Result Comment: INR Therapeutic Range A) Pre- and Peroperative OAT started two weeks before surgery. NOT HIP SURGERY: 1.5 - 2.5 HIP SURGERY: 2 - 3 B) Primary and secondary prevention of venous THROMBOSIS: 2 - 3 C) Active venous thrombosis, pulmonary embolism and prevention of recurrent venous thrombosis: 2 - 3 D) Prevention of arterial thromboembolism including patients with mechanical heart valves: 3 - 4.5 Performed By: #### P T, PTT #### [facility] [address] [place] [id number] [facility] PT Coag (PPP) [Time] 11.0 s Normal 9.0-12.9 [facility] Comment on above: Result Comment: A he matocrit value greater than 55% may lead to inaccurate results in coagulation testing. Patients having hematocrit values >55% require a special collection tube for coagulation studies. Please contact the laboratory at [phone] for redraw instructions. Performed By: #### P T, PTT #### [facility] [address] [place] [id number] [facility] Prothrombin time (PT)Ordered By: Nathaniel Lackey on 09-05-2023 PT Coag (PPP) [Time] 11.0 s 9.0-12.9 [facility] Comment on above: A hematocrit value g reater than 55% may lead to inaccurate results in coagulation testing. Patients having hematocrit values >55% require a special collection tube for coagulation studies. Please contact the laboratory at [phone] for redraw instructions. RBC Auto (Bld) [#/Vol]Ordere d By: Nathaniel Lackey on 09-05-2023 RBC (Bld) [#/Vol] 5.64 10*6/uL 3.90-5.60 [facility] Serum or plasma albumin/glob ulin mass ratioOrdered By: Nathaniel Lackey on 09-05-2023 Albumin/Globulin [Mass ratio] 1.5 {ratio} [facility] Serum or plasma anion gap de terminationOrdered By: Nathaniel Lackey on 09-05-2023 Anion gap [Moles/Vol] 13.4 mmol/L 6.0-15.0 [facility] Serum or plasma non-glucuron idated bilirubin measurement (mass/volume)Ordered By: Nathaniel Lackey on 09-05-2023 Bilirubin.indirect [Mass/Vol] 0.5 mg/dL [facility] Sodium [Moles/volume] in Ser um or PlasmaOrdered By: Nathaniel Lackey on 09-05-2023 Sodium [Moles/Vol] 140 mmol/L 136-145 [facility] Specific gravity Auto test s trip (U) [Rel density]Ordered By: Nathaniel Lackey on 09-05-2023 Specific gravity (U) [Rel density] 1.023 1.001-1.030 [facility] Squamous epithelial cells de tection in urine sediment by light microscopyOrdered By: Nathaniel Lackey on 09-05-2023 Epithelial cells.squamous LM Ql (Urine sed) 0-1 [HPF] 0-2 [facility] Urea nitrogen [Mass/volume] in Serum or PlasmaOrdered By: Nathaniel Lackey on 09-05-2023 Urea nitrogen [Mass/Vol] 15 mg/dL 7-25 [facility] Urine bacteria detection by automated methodOrdered By: Nathaniel Lackey on 09-05-2023 Bacteria Auto Ql (U) Rare [HPF] None Seen [facility] Urine clarity by refractomet ry automatedOrdered By: Nathaniel Lackey on 09-05-2023 Clarity Refractometry automated (U) Turbid Clear [facility] Urine glucose measurement by automated test strip (mass/volume)Ordered By: Nathaniel Lackey on 09-05-2023 Glucose Auto test strip (U) [Mass/Vol] Normal mg/dL Normal [facility] Urine hemoglobin detection b y automated test stripOrdered By: Nathaniel Lackey on 09-05-2023 Hemoglobin Auto test strip Ql (U) 3+ Negative [facility] Urine leukocyte esterase det ection by automated test stripOrdered By: Nathaniel Lackey on 09-05-2023 Leukocyte esterase Auto test strip Ql (U) 1+ Negative [facility] Urobilinogen Auto test strip (U) [Mass/Vol]Ordered By: Nathaniel Lackey on 09-05-2023 Urobilinogen (U) [Mass/Vol] mg/dL Normal [facility] WBC Auto (Bld) [#/Vol]Ordere d By: Nathaniel Lackey on 09-05-2023 WBC (Bld) [#/Vol] 17.1 10*3/uL 4.1-10.5 [facility] Yeast detection in urine sed iment by light microscopyOrdered By: Nathaniel Lackey on 09-05-2023 Yeast LM Ql (Urine sed) None seen [HPF] None Seen [facility] pH Auto test strip (U)Ordere d By: Nathaniel Lackey on 09-05-2023 pH (U) 6.0 [pH] 5.0-9.0 [facility] Vital Signs Date Time Vital Sign Value Performing Clinician Facility 09-23-2023 08:43-0400 Diastolic blood pressure 88 mm[Hg] Aleksandra [facility] 09-23-2023 08:43-0400 Mean blood pressure 107 mm[Hg] Aleksandra Orzech [facility] 09-23-2023 08:43-0400 Systolic blood pressure 144 mm[Hg] Aleksandra Orzech [facility] 09-23-2023 08:25-0400 Blood Pressure Location Aleksandra Orzech [facility] 09-23-2023 08:25-0400 Body temperature 98.24 [degF] Aleksandra Orzech [facility] 09-23-2023 08:25-0400 Diastolic blood pressure 94 mm[Hg] Aleksandra Orzech [facility] 09-23-2023 08:25-0400 Heart rate 87 /min Aleksandra Orzech [facility] 09-23-2023 08:25-0400 Respiratory rate 16 /min Aleksandra Orzech [facility] 09-23-2023 08:25-0400 Systolic blood pressure 166 mm[Hg] Aleksandra Orzech [facility] 09-09-2023 16:00-0400 Diastolic blood pressure 82 mm[Hg] DO Mark Petznick Work Phone: [facility] 09-09-2023 16:00-0400 Heart rate 79 /min DO Mark Petznick Work Phone: [phone] [place] [address] 09-09-2023 16:00-0400 Respiratory rate 18 /min DO Mark Petznick Work Phone: [phone] [address] 09-09-2023 16:00-0400 SaO2% (BldA) [Mass fraction] 96 % DO Mark Petznick Work Phone: [facility] 09-09-2023 16:00-0400 Systolic blood pressure 142 mm[Hg] DO Mark Petznick Work Phone: [phone] [place] [address] 09-09-2023 11:55-0400 Body height 175.26 cm DO Mark Petznick Work Phone: [phone] [place] [address] 09-09-2023 11:55-0400 Body temperature 98 [degF] DO Mark Petznick Work Phone: [phone] [place] [address] 09-09-2023 11:55-0400 Body weight 115.3 kg DO Mark Petznick Work Phone: [facility] 09-05-2023 20:18-0400 Diastolic blood pressure 63 mm[Hg] DO Mark Petznick Work Phone: [facility] 09-05-2023 20:18-0400 Heart rate 85 /min DO Mark Petznick Work Phone: [facility] 09-05-2023 20:18-0400 Respiratory rate 18 /min DO Mark Petznick Work Phone: [facility] 09-05-2023 20:18-0400 SaO2% (BldA) [Mass fraction] 98 % DO Mark Petznick Work Phone: [facility] 09-05-2023 20:18-0400 Systolic blood pressure 117 mm[Hg] DO Mark Petznick Work Phone: [facility] 09-05-2023 18:35-0400 Body height 177.8 cm DO Mark Petznick Work Phone: [facility] 09-05-2023 18:35-0400 Body temperature 97.8 [degF] DO Mark Petznick Work Phone: [facility] 09-05-2023 18:35-0400 Body weight 112.7 kg DO Mark Petznick Work Phone: [facility] 02-04-2022 20:41-0400 Body height 175.3 cm [facility] 1 [facility] [employer] 02-04-2022 20:41-0400 Body mass index (BMI) [Ratio] 39.28 kg/m2 [facility] [place] [facility] [facility] 02-04-2022 20:41-0400 Body weight 120.66 kg [facility] [place] Encounters Encounter Date Encounter Type Care Provider Facility Start: 09-23-2023 End: 09-23-2023 ambulatory Aleksandra X Joe Facility:[facility] Start: 09-23-2023 End: 09-23-2023 Patient encounter procedure Aleksandra X Orzech [facility] Start: 09-18-2023 End: 09-18-2023 Emergency department patient visit Delfino Chau Facility:[facility] Start: 09-10-2023 End: 09-10-2023 ambulatory MARK VASQUEZ Not Available Start: 09-09-2023 End: 09-09-2023 Emergency department patient visit Nathaniel Lackey Facility:[facility] Start: 09-09-2023 End: 09-09-2023 Emergency department patient visit DO Mark Vasquez Work Phone: [facility] Work Phone: Start: 09-08-2023 ambulatory Aleksandra Diaz Facility: [facility] Start: 09-05-2023 End: 09-05-2023 Emergency department patient visit Nathaniel Lackey Facility:[facility] Start: 09-05-2023 End: 09-05-2023 Emergency department patient visit DO Mark Vasquez Work Phone: [facility] Work Phone: Start: 04-23-2023 End: 04-23-2023 ambulatory MERRYMANJINDER ZAMORA Not Available Start: 03-11-2022 End: 03-12-2022 ambulatory MARK [facility] Start: 02-04-2022 End: 02-05-2022 ambulatory MARK [facility] Start: 02-04-2022 End: 02-04-2022 [facility] Sleep Welcome Comment on above: Arrived Procedures Date Procedure Procedure Detail Performing Clinician Start: 09-09-2023 Diagnostic radiograp hy of abdomen DO Mark Vasquez Work Phone: Start: 09-05-2023 CT of abdomen and pe lvis without contrast DO Mark Vasquez Work Phone: Plan of Treatment Date Care Activity Detail Author Start: 09-05-2023 Bacteria identified in Blood by Culture Blood Culture [facility] Start: 09-05-2023 Blood culture for bacteria, including anaerobic screen Blood Culture [facility] Start: 12-03-2021 Influenza vaccination Flu vaccine (# 1) [facility] Start: 11-29-2020 COVID-19 Vaccine (2 - Booster for Linh series) COVID-19 Vaccine (2 - Booster for Linh series) [facility] Start: 08-16-2018 DTaP/Tdap/Td vaccine (7 - Td or Tdap) DTaP/Tdap/Td vaccine (7 - Td or Tdap) [facility] Start: 2011 Hepatitis C screening Hepatitis C sc reen [facility] Start: 2008 HIV screening HIV screen [facility] Start: 2005 Depression Screen Depression Screen [facility] Start: 1994 Varicella vaccine (1 of 2 - 2-dose childhood series) Varicella vaccine (1 of 2 - 2-dose childhood series) [facility] End: 02-04-2022 Baseline Diagnostic Sleep Study Baseline Diagnostic Sleep Study Sleep Center Routine One Time for 1 Occurrences starting 02/04/2022 until 02/04/[address] [facility] Work Phone: Comment on above: One Time for 1 Occur rences starting 02/04/2022 until 02/04/2022 Patient Education [facility] Work Phone: Patient referral [facility] Work Phone: Immunizations Immunization Date Immunization Notes Care Provider Aristides scott 10-04-2020 SARS-CoV-2 (COVID-19 ) Ad26 vaccine, recombinant Aleksandra Orzech [facility] 02-10-2020 influenza virus vacc ine, unspecified formulation Aleksandra Orzech [facility] 05-24-2019 influenza virus vacc ine, unspecified formulation Aleksandra Orzech [facility] 01-27-2009 influenza virus vacc ine, unspecified formulation Aleksandra Orzech [facility] 08-16-2008 meningococcal ACWY vaccine, unspecified formulation Aleksandra Orzech [facility] 08-16-2008 tetanus toxoid, redu michelle diphtheria toxoid, and acellular pertussis vaccine, adsorbed Aleksandra Orzech [facility] 03-14-2008 influenza virus vacc ine, unspecified formulation Aleksandra Orzech [facility] 03-07-2007 influenza virus vacc ine, unspecified formulation Aleksandra Orzech [facility] 03-01-2006 influenza virus vacc ine, unspecified formulation Aleksandra Orzech [facility] 08-11-1998 DTaP, unspecified formulation Aleksandra Orzech [facility] 08-11-1998 measles, mumps and rubella virus vaccine Aleksandra Orzech [facility] 08-15-1995 DTaP, unspecified formulation Aleksandra Orzech [facility] 07-31-1994 DTP-Hib Aleksandra Orzech [facility] 07-31-1994 hepatitis B vaccine, pediatric or pediatric/adolescent dosage Aleksandra Orzech [facility] 07-31-1994 measles, mumps and rubella virus vaccine Aleksandra Orzech [facility] 1993 hepatitis B vaccine, pediatric or pediatric/adolescent dosage Aleksandra Orzech [facility] 1993 Hib, unspecified formulation Aleksandra Orzech [facility] 1993 hepatitis B vaccine, pediatric or pediatric/adolescent dosage Aleksandra Orzech [facility] 1993 Hib, unspecified formulation Aleksandra Diaz [facility] Payers Date Payer Category Payer Self-pay [id number] 2022 Unknown [id number] 2022 Unknown [id number] 2020 Unknown [id number] 2020 Unknown [id number] 1993 Unknown [id number] 1993 Unknown [id number] 1993 Unknown [id number] 1993 Unknown [id number] 1993 Unknown [id number] Unknown [id number] Unknown Regular Insurance [id number] Unknown [id number] Unknown [id number] Unknown [id number] Worker's Compensation [id number] Social History Date Type Detail Facility Start: 02-04-2022 End: 09-23-2023 Tobacco smoking status NHIS Never smoked tobacco [email or web address] Phone: Start: 02-04-2022 Tobacco use and exposure User of smokeless tobacco [email or web address] Phone: History of tobacco use Snuff User [employer] Phone: Start: 02-04-2022 Alcohol intake Current drinke r of alcohol (finding) [email or web address] Phone: Start: 02-04-2022 History SDOH Alcohol Comment social [email or web address] Phone: Start: 1995 Sex Assigned At Not on file B [employer] Phone: Start: 1995 Sex Assigned At Male [facility] Tobacco smoking status Smokeless tobacco user within last 30 days [facility] Sex Assigned At Male [facility] Functional Status Date Assessment Result Facility 09-23-2023 Functional Status N/A [facility] Evaluation + Plan note 09-23-2023 Note Date & Type Note Facility 09-23-2023 Evaluation + Plan note Diagnostic Tests PendingCreatinine 09/23/23 [facility] Hospital Discharge instructions 09-23-2023 Note Date & Type Note Facility 09-23-2023 Hospital Discharg e instructions Patient Education 09/23/2023 09:41:04 Dietary Guidelines to Help Prevent Kidney Stones Dietary Guidelines to Help Prevent Kidney Stones Kidney stones are deposits of minerals and salts that form inside your kidneys. Your risk of developing kidney stones may be greater depending on your diet, your lifestyle, the medicines you take, and whether you have certain medical conditions. Most people can lower their risks of developing kidney stones by following these dietary guidelines. Your dietitian may give you more specific instructions depending on your overall health and the type of kidney stones you tend to develop. What are tips for following this plan? Reading food labels Choose foods with no salt added or low-salt labels. Limit your salt (sodium) intake to less than 1,500 mg a day. Choose foods with calcium for each meal and snack. Try to eat about 300 mg of calcium at each meal. Foods that contain 200 500 mg of calcium a serving include: ?8 oz (237 mL) of milk, swwczsk-zhhxkcsmvcrn-ninwc milk, and calcium-fortifiedfruit juice. Calcium-fortified means that calcium has been added to these drinks. ?8 oz (237 mL) of kefir, yogurt, and soy yogurt. ?4 oz (114 g) of tofu. ?1 oz (28 g) of cheese. ?1 cup (150 g) of dried figs. ?1 cup (91 g) of cooked broccoli. ?One 3 oz (85 g) can of sardines or mackerel. Most people need 1,000 1,500 mg of calcium a day. Talk to your dietitian about how much calcium is recommended for you. Shopping Buy plenty of fresh fruits and vegetables. Most people do not need to avoid fruits and vegetables, even if these foods contain nutrients that may contribute to kidney stones. When shopping for convenience foods, choose: ?Whole pieces of fruit. ?Pre-made salads with dressing on the side. ?Low-fat fruit and yogurt smoothies. Avoid buying frozen meals or prepared deli foods. These can be high in sodium. Look for foods with live cultures, such as yogurt and kefir. Choose high-fiber grains, such as whole-wheat breads, oat bran, and wheat cereals. Cooking Do not add salt to food when cooking. Place a salt shaker on the table and allow each person to add their own salt to taste. Use vegetable protein, such as beans, textured vegetable protein (TVP), or tofu, instead of meat in pasta, casseroles, and soups. Meal planning Eat less salt, if told by your dietitian. To do this: ?Avoid eating processed or pre-made food. ?Avoid eating fast food. Eat less animal protein, including cheese, meat, poultry, or fish, if told by your dietitian. To do this: ?Limit the number of times you have meat, poultry, fish, or cheese each week. Eat a diet free of meat at least 2 days a week. ?Eat only one serving each day of meat, poultry, fish, or seafood. ?When you prepare animal proteins, cut pieces into small portion sizes. For most meat and fish, one serving is about the size of the palm of your hand. Eat at least five servings of fresh fruits and vegetables each day. To do this: ?Keep fruits and vegetables on hand for snacks. ?Eat one piece of fruit or a handful of berries with breakfast. ?Have a salad and fruit at lunch. ?Have two kinds of vegetables at dinner. You may be told to limit foods that are high in a substance called oxalate. These include: ?Spinach (cooked), rhubarb, beets, sweet potatoes, and Swedish chard. ?Peanuts. ?Potato chips, moldovan fries, and baked potatoes with skin on. ?Nuts and nut products. ?Chocolate. If you regularly take a diuretic medicine, make sure to eat at least 1 or 2 servings of fruits or vegetables that are high in potassium each day. These include: ?Avocado. ?Banana. ?[place], prune, carrot, or tomato juice. ?Baked potato. ?Cabbage. ?Beans and split peas. Lifestyle Drink enough fluid to keep your urine pale yellow. This is the most important thing you can do. Spread your fluid intake throughout the day. If you drink alcohol: ?Limit how much you have to: ?0 1 drink a day for women who are not . ?0 2 drinks a day for men. ?Know how much alcohol is in your drink. In the [place] one drink equals one 12 oz bottle of beer (355 mL), one 5 oz glass of wine (148 mL), or one 1 oz glass of hard liquor (44 mL). Lose weight if told by your health care provider. Work with your dietitian to find an eating plan and weight loss strategies that work best for you. General information Talk to your health care provider and dietitian about taking daily supplements. Depending on your health and the cause of your kidney stones, you may be told: ?Do not take high-dose supplements of vitamin C (1,000 mg a day or more). ?To take a calcium supplement. ?To take a daily probiotic supplement. ?To take other supplements such as magnesium, fish oil, or vitamin B6. Take jagc-jap-yqhxked and prescription medicines only as told by your health care provider. These include supplements. What foods should I limit? Limit your intake of the following foods, or eat them as told by your dietitian. Vegetables Spinach. Rhubarb. Beets. Canned vegetables. Pickles. Olives. Baked potatoes with skin. Grains Wheat bran. Baked goods. Salted crackers. Cereals high in sugar. Meats and other proteins Nuts. Nut butters. Large portions of meat, poultry, or fish. Salted, precooked, or cured meats, such as sausages, meat loaves, and hot dogs. Dairy Cheeses. Beverages Regular soft drinks. Regular vegetable juice. Seasonings and condiments Seasoning blends with salt. Salad dressings. Soy sauce. Ketchup. Barbecue sauce. Other foods Canned soups. Canned pasta sauce. Casseroles. Pizza. Lasagna. Frozen meals. Potato chips. Maltese fries. The items listed above may not be a complete list of foods and beverages you should limit. Contact a dietitian for more information. What foods should I avoid? Talk to your dietitian about specific foods you should avoid based on the type of kidney stones you have and your overall health. Fruits Grapefruit. The item listed above may not be a complete list of foods and beverages you should avoid. Contact a dietitian for more information. Summary Kidney stones are deposits of minerals and salts that form inside your kidneys. You can lower your risk of kidney stones by making changes to your diet. The most important thing you can do is drink enough fluid. Drink enough fluid to keep your urine pale yellow. Talk to your dietitian about how much calcium you should have each day, and eat less salt and animal protein as told by your dietitian. This information is not intended to replace advice given to you by your health care provider. Make sure you discuss any questions you have with your health care provider. Document Revised: 08/01/2022 Document Reviewed: 08/01/2022 [employer] Patient Education 2022 [employer]. 09/23/2023 09:41:00 Kidney Stones, Zqzh-bn-Tbyt Kidney Stones Kidney stones are rock-like masses that form inside of the kidneys. Kidneys are organs that make pee (urine). A kidney stone may move into other parts of the urinary tract, including: The tubes that connect the kidneys to the bladder (ureters). The bladder. The tube that carries urine out of the body (urethra). Kidney stones can cause very bad pain and can block the flow of pee. The stone usually leaves your body (passes) through your pee. You may need to have a doctor take out the stone. What are the causes? Kidney stones may be caused by: A condition in which certain glands make too much parathyroid hormone (primary hyperparathyroidism). A buildup of a type of crystals in the bladder made of a chemical called uric acid. The body makes uric acid when you eat certain foods. Narrowing (stricture) of one or both of the ureters. A kidney blockage that you were born with. Past surgery on the kidney or the ureters, such as gastric bypass surgery. What increases the risk? You are more likely to develop this condition if: You have had a kidney stone in the past. You have a family history of kidney stones. You do not drink enough water. You eat a diet that is high in protein, salt (sodium), or sugar. You are overweight or very overweight (obese). What are the signs or symptoms? Symptoms of a kidney stone may include: Pain in the side of the belly, right below the ribs (flank pain). Pain usually spreads (radiates) to the groin. Needing to pee often or right away (urgently). Pain when going pee (urinating). Blood in your pee (hematuria). Feeling like you may vomit (nauseous). Vomiting. Fever and chills. How is this treated? Treatment depends on the size, location, and makeup of the kidney stones. The stones will often pass out of the body through peeing. You may need to: Drink more fluid to help pass the stone. In some cases, you may be given fluids through an IV tube put into one of your veins at the hospital. Take medicine for pain. Make changes in your diet to help keep kidney stones from coming back. Sometimes, medical procedures are needed to remove a kidney stone. This may involve: A procedure to break up kidney stones using a beam of light (laser) or shock waves. Surgery to remove the kidney stones. Follow these instructions at home: Medicines Take nhmh-nik-xjxqxob and prescription medicines only as told by your doctor. Ask your doctor if the medicine prescribed to you requires you to avoid driving or using heavy machinery. Eating and drinking Drink enough fluid to keep your pee pale yellow. You may be told to drink at least 8 10 glasses of water each day. This will help you pass the stone. If told by your doctor, change your diet. This may include: ?Limiting how much salt you eat. ?Eating more fruits and vegetables. ?Limiting how much meat, poultry, fish, and eggs you eat. Follow instructions from your doctor about eating or drinking restrictions. General instructions Collect pee samples as told by your doctor. You may need to collect a pee sample: ?24 hours after a stone comes out. ?8 12 weeks after a stone comes out, and every 6 12 months after that. Strain your pee every time you pee (urinate), for as long as told. Use the strainer that your doctor recommends. Do not throw out the stone. Keep it so that it can be tested by your doctor. Keep all follow-up visits as told by your doctor. This is important. You may need follow-up tests. How is this prevented? To prevent another kidney stone: Drink enough fluid to keep your pee pale yellow. This is the best way to prevent kidney stones. Eat healthy foods. Avoid certain foods as told by your doctor. You may be told to eat less protein. Stay at a healthy weight. Where to find more information National Kidney Foundation (NKF): www.kidney.org Urology Care Foundation (UCF): www.urologyhealth.org Contact a doctor if: You have pain that gets worse or does not get better with medicine. Get help right away if: You have a fever or chills. You get very bad pain. You get new pain in your belly (abdomen). You pass out (faint). You cannot pee. Summary Kidney stones are rock-like masses that form inside of the kidneys. Kidney stones can cause very bad pain and can block the flow of pee. The stones will often pass out of the body through peeing. Drink enough fluid to keep your pee pale yellow. This information is not intended to replace advice given to you by your health care provider. Make sure you discuss any questions you have with your health care provider. Document Revised: 12/24/2021 Document Reviewed: 12/24/2021 [employer] Patient Education 2022 [employer]. Follow Up Care 09/08/2023 15:41:39 With:HAYLEY Diaz APRN, MALISSA Dixon, URL Address: When: Unknown Comments:pending IVP results [facility] History of Present illness Narrative 02-04-2022 Zahira Mccoy - 02/04/2022 9:00 PM EDT Note Date & Type Note Facility 02-04-2022 History of Present illness Narrative Patient agreed to come in for diagnostic study due to cancellation. Arrived 02/04/22 at 8:40pm documented in this encounter [facility] Work Phone: Evaluation note Note Date & Type Note Facility Evaluation note No assessment information availa [facility] Work Phone: Hospital course Narrative Note Date & Type Note Facility Hospital course Narrative No data available for this section [facility] Progress note Note Date & Type Note Facility Progress note No data available for this section [facility] Summary Purpose Family History No Family History Records Found Relationship Condition Age at Onset Recorded Date/T rosemarie father Diabetes mellitus Unknown Advance Directives No Advanced Directives Records Found Advance Directive Response Recorded Date/ Time Advance Directives No February 06, 2017 9:15am Chief Complaint and Reason for Visit Chief Complaint lower abdomen, lower back pain Chief Complaint lower abdomen, lower back pain abd pain Additional Source Comments Care Teams (unrecognized sec tion and content) Control Room Tender Relationship Specialty Start Date End Date Mark Vasquez, [address] [place] [address] PCP - General Family Medicine 02/04/22 Team Status: Active Member Role Status Dates Mark Vasquez DO Primary Care Provider Active Team Status: Inactive Member Role Status Dates Mark Vasquez DO Primary Care Provider Active Start: September 05, 2023 End: September 05, 2023 Nathaniel Lackey DO Emergency Provider Active Sta rt: September 05, 2023 End: September 05, 2023 Team Status: Inactive Member Role Status Dates Mark Vasquez DO Primary Care Provider Active Start: September 09, 2023 End: September 09, 2023 Nathaniel Lackey Emergency Provider Active Sta rt: September 09, 2023 End: September 09, 2023 (unrecognized sect ion and content) No Status Records FoundNo Status Records FoundNo Status Records FoundNo Status Records Found INFORMATION SOURCE (unrecogn ized section and content) DATE CREATED AUTHOR 03/12/2022 [facility] DATE CREATED AUTHOR AUTHOR'S ORGANIZ ATION 09/12/2023 [facility] EPIC DATE CREATED AUTHOR AUTHOR'S ORGANIZ ATION 10/01/2023 [facility] DATE CREATED AUTHOR AUTHOR'S ORGANIZ ATION 01/17/2024 [facility] Goals (unrecognized section and content) Goals may be documented in a n alternate sectionGoals may be documented in an alternate section No data available for this section FOR RECORDS PERTAINING TO PATIENTS WHO ARE OR HAVE BEEN ENROLLED IN A CHEMICAL DEPENDENCY/SUBSTANCEABUSE PROGRAM, SOME INFORMATION MAY BE OMITTED. This clinical summary was aggregated from multiple sources. Caution should be exercised in using it in the provision of clinical care. This summary normalizes information from multiple sources, and as a consequence, information in this document may materially change the coding, format and clinical context of patient data. In addition, data may be omitted in some cases. CLINICAL DECISIONS SHOULD BE BASED ON THE PRIMARY CLINICAL RECORDS. [employer] [facility]. provides no warranty or guarantee of the accuracy or completeness of information in this document.
--- NOTE | 2024-05-05 13:03 | XR_ITS ---
The [address] [address] Patient Name: ARTURO GARLAND MRN: [id number] date: 1995 Sex: M Assigned Patient Location: ER Current Patient Location: ER Accession/Order Number: [id number] Exam Date: 05/05/2024 13:10 Report Date: 05/05/2024 14:02 At the request of: ROSETTA GARCIA Procedure: XR chest 2V EXAM: XR chest 2V HISTORY: cough COMPARISON: None. TECHNIQUE: PA and lateral views of the chest performed. FINDINGS: The trachea is unremarkable. The heart size is normal. The cardiomediastinal silhouette and hilar shadows are normal. There is no consolidation, pleural effusion or pulmonary vascular congestion. There is no pneumothorax. There is no acute osseous abnormality. There is slight dextroscoliosis of the thoracic spine. XR/XR chest 2V IMPRESSION: There is no acute cardiopulmonary process. Electronically authenticated by: LILY AVILES Date: 05/05/2024 14:02
[2024-05-05 14:00] LABS: Influenza Virus A Antigen Negative; Influenza Virus B Antigen Negative; Internal Control Within Normal Limits; SARS-CoV-2 Ag NEGATIVE (NEGATIVE)
--- NOTE | 2024-05-05 14:16 | ED_ITS ---
HPI - URI/Sore Throat General Chief Complaint: Upper Respiratory Infection Stated Complaint: PRODUCTIVE COUGH Time Seen by Provider: 05/05/24 13:36 Source: patient and family Limitations: no limitations History of Present Illness HPI Narrative: Patient is a 29-year-old male who presents to the emergency department to be evaluated for cough for the last 3 weeks. His significant other and a child in the home were just evaluated by myself separately for the same symptoms prior to evaluation of this patient. Patient states for 3 weeks he has had productive cough and chest tightness. He has a history of asthma. He has been using estrellita thing treatments with some improvement temporarily. He has not had any objective fevers, vomiting or diarrhea. No hemoptysis. Related Data Home Medications ?Medication ?Instructions ?Recorded ?Confirmed albuterol sulfate 90 mcg/actuation 2 puff inhalation Q6H 05/05/24 05/05/24 aerosol inhaler cetirizine 10 mg capsule (All Day 10 mg PO DAILY PRN allergy symptoms 05/05/24 05/05/24 Allergy (cetirizine)) fluoxetine 40 mg capsule 40 mg PO DAILY 05/05/24 05/05/24 Previous Rx's ?Medication ?Instructions ?Recorded [id number]-ioebhrucqbpzcnt-IC 10 ml PO Q6H PRN cold symptoms 05/05/24 2 mg-30 mg-10 mg/5 mL oral syrup #200 mL (Bromfed DM) cefdinir 300 mg capsule 300 mg PO BID 10 days #20 caps 05/05/24 methylprednisolone 4 mg tablets in See Rx Instructions .Route 05/05/24 a dose pack (Medrol (Som)) .COMPLEX #21 ea Allergies Allergy/AdvReac Type Severity Reaction Status Date / Time No Known Drug Allergies Allergy Verified 05/05/24 12:59 Review of Systems ROS Constitutional Denies: fever or chills Ears, nose, mouth, and throat Reports: nasal congestion; Denies: throat pain Cardiovascular Denies: chest pain Respiratory Reports: cough and wheezing Gastrointestinal Denies: nausea, vomiting or diarrhea Musculoskeletal Denies: back pain or neck pain Integumentary/Breast Denies: rash Neurological Denies: numbness in extremities or weakness in extremities Hematologic/Lymphatic Denies: easy bruising or easy bleeding PFSH PFSH Social History Little interest or pleasure in doing things: not at all Feeling down, depressed, or hopeless: not at all Exam Narrative Exam Narrative: Gen.: Awake, alert, in no distress Head: Normocephalic, atraumatic ENT: Moist mucous membranes Respiratory: No respiratory distress, faint expiratory wheezing with speaking in full sentences Cardio: Regular rate and rhythm Extremities: Moves extremities equally Psych: Normal mood and affect Neuro: No focal neuro deficit Skin: Warm, dry, intact Constitutional Vital Signs, click to edit/add: Last Vital Signs Temp 98.5 F 05/05/24 12:55 Pulse 91 H 05/05/24 12:55 Resp 16 05/05/24 12:55 BP 146/100 H 05/05/24 12:55 Pulse Ox 96 05/05/24 12:55 O2 Del Method Room Air 05/05/24 12:55 Course Vital Signs Vital signs: Vital Signs Temperature 98.5 F 05/05/24 12:55 Pulse Rate 91 H 05/05/24 12:55 Respiratory Rate 16 05/05/24 12:55 Blood Pressure 146/100 H 05/05/24 12:55 Pulse Oximetry 96 05/05/24 12:55 Oxygen Delivery Method Room Air 05/05/24 12:55 Temperature 98.5 F 05/05/24 12:55 Pulse Rate 91 H 05/05/24 12:55 Respiratory Rate 16 05/05/24 12:55 Blood Pressure 146/100 H 05/05/24 12:55 Pulse Oximetry 96 05/05/24 12:55 Oxygen Delivery Method Room Air 05/05/24 12:55 MDM - URI/Sore Throat MDM Narrative Medical decision making narrative: Respiratory swabs and chest x-ray obtained in triage are negative. Patient treated based on the duration of his symptoms with cefdinir, Medrol Dosepak and Bromfed-DM. Continue inhaler at home. Return to the ER if symptoms change or worsen SUPERVISED APC VISIT, PHYSICIAN ATTESTATION: Based on the medical record the care appears appropriate. ? Medical Records Attestation: I reviewed the patient's medical records. Lab Data Attestation: I reviewed the patient's lab results. Labs: Lab Results 05/05/24 Range/Units 13:02 Influenza Type A Ag Negative Influenza Type B Ag Negative SARS-CoV-2 Ag (CV2AG) Negative (NEGATIVE) Imaging Data Chest x-ray: Attestation: I have reviewed the pertinent imaging results. Radiologist's impression: ITS Impressions Chest X-Ray 05/05/24 13:03 IMPRESSION: There is no acute cardiopulmonary process. Electronically authenticated by: LILY AVILES Date: 05/05/2024 14:02 Discharge Plan Discharge Chief Complaint: Upper Respiratory Infection Clinical Impression: Upper respiratory infection Patient Disposition: Home, Self-Care Time of Disposition Decision: 14:15 Condition: Good Prescriptions / Home Meds: New [id number]-ylrktovme-HJ [Bromfed DM] 2-30-10 mg/5 mL syrup 10 ml PO Q6H PRN (Reason: cold symptoms) Qty: 200 0RF cefdinir 300 mg capsule 300 mg PO BID 10 Days Qty: 20 0RF methylprednisolone [Medrol (Som)] 4 mg tablets,dose pack See Rx Instructions .ROUTE .COMPLEX Qty: 21 0RF Rx Instructions: Taper as directed No Action albuterol sulfate 90 mcg/actuation HFA aerosol inhaler 2 puff INHALATION Q6H fluoxetine 40 mg capsule 40 mg PO DAILY All Day Allergy (cetirizine) 10 mg capsule 10 mg PO DAILY PRN (Reason: allergy symptoms) Print Language: Jordanian Instructions: Upper Respiratory Infection (ED) Referrals: MARK VASQUEZ [Primary Care Provider] - 1 week
== END 2024-05-05 14:38 | disposition home or self-care (01) ==
PROVIDERS: Emergency Provider Emergency Medicine; PCP Family Medicine
DX: J06.9 Acute upper respiratory infection, unspecified (principal); J45.909 Unspecified asthma, uncomplicated
CPT/HCPCS: 71046; 87804; 87811; 99285